=== PATIENT | male | born 1965 | race African-American/Black ===

== ENCOUNTER 2017-04-16 19:03 | Emergency (ER) | payer MEDICARE ==
[2017-04-16] MEDS ORDERED: diphenhydrAMINE HCl 25 MG CAP ONE (20:40)
[2017-04-16] MEDS ORDERED: predniSONE 20 MG TAB ONE (20:40)
== END 2017-04-16 20:58 | disposition home or self-care (01) ==
LOC: ERS 19:03
DX: L50.0 Allergic urticaria (principal); E11.9 Type 2 diabetes mellitus without complications; I10 Essential (primary) hypertension; F17.290 Nicotine dependence, other tobacco product, uncomplicated
CPT/HCPCS: 99283; J7506

== ENCOUNTER 2017-06-18 21:34 | Emergency (ER) | payer MEDICARE ==
[2017-06-18] MEDS ORDERED: hydrOXYzine 25 MG TAB ONE (23:38)
== END 2017-06-18 23:55 | disposition home or self-care (01) ==
LOC: ERS 21:34
DX: L50.9 Urticaria, unspecified (principal); I10 Essential (primary) hypertension; E11.9 Type 2 diabetes mellitus without complications
CPT/HCPCS: 99282

== ENCOUNTER 2017-08-08 04:24 | Emergency (ER) | payer MEDICARE ==
[2017-08-08 08:29] LABS: #Eosinphils 0.2 thou/uL (0.0-0.7); #Lymphocytes 2.4 thou/uL (1.20-3.40); #Monocytes 0.3 thou/uL (0.11-0.59); #Neutrophils 3.9 thou/uL (1.40-6.50); %Basophils 0.1 % (0.0-1.0); %Eosinophils 2.3 % (0.0-10.0); %Lymphocytes 35.5 % (21.0-51.0); %Monocytes 4.9 % (0.0-10.0); %Neutrophils 57.2 % (42.0-75.0); Hemoglobin 14.1 g/dL (14.0-18.0); Mean Corpuscular HGB CONC 33.6 g/dL (32.0-36.0); Mean Corpuscular Hemoglobin 28.4 pg (27.0-31.0); Mean Corpuscular Volume 84.5 fl (80.0-94.0); Platelet Count 255 thou/uL (130-400); RBC Distribution Width 11.9 % (11.5-14.5); Red Blood Cell (RBC) Count 4.98 mill/uL (4.70-6.10); White Blood Cell (WBC) Count 6.7 thou/uL (4.8-10.8)
[2017-08-08 08:50] LABS: ALT (SGPT) 19 U/L (8-55); AST (SGOT) 16 U/L (5-34); Albumin 4.3 g/dL (3.5-5.0); Alkaline Phosphatase 86 U/L (40-150); Anion Gap 10 mmol/L (10-20); BUN (Urea Nitrogen) 13 mg/dL (8.4-25.7); Bilirubin, Total 0.3 mg/dL (0.2-1.2); Calc. Creatinine Clearance 0 mL/min (70-130); Calcium 9.7 mg/dL (7.8-10.44); Carbon Dioxide 31 mmol/L (22-29); Chloride 98 mmol/L (98-107); Estimated GFR-MDRD 84; Globulin 3.6 g/dL (2.4-3.5); Glucose 343 mg/dL (70-105); Potassium 4.4 mmol/L (3.5-5.1); Protein, Total 7.9 g/dL (6.0-8.3); Sodium 135 mmol/L (136-145)
== END 2017-08-08 09:25 | disposition home or self-care (01) ==
LOC: ERS 04:24
DX: N48.1 Balanitis (principal); E10.9 Type 1 diabetes mellitus without complications; I10 Essential (primary) hypertension
CPT/HCPCS: 36415; 36416; 80053; 82010; 85025; 99283

== ENCOUNTER 2018-11-15 14:30 | Emergency (ER) | payer MEDICARE, OTHER ==
[2018-11-15] MEDS ORDERED: Ketorolac Tromethamine 30 MG/ML VIAL ONE (14:56)
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
== END 2018-11-15 15:32 | disposition home or self-care (01) ==
LOC: ERS 14:30
DX: M54.6 Pain in thoracic spine (principal); V43.52XA Car driver injured in collision with other type car in traffic accident, initial encounter
CPT/HCPCS: 72100; 96372; J1885

== ENCOUNTER 2019-08-16 16:28 | Emergency (ER) | payer MEDICARE, OTHER ==
[2019-08-16] MEDS ORDERED: Ketorolac Tromethamine 60 MG/2 ML VIAL ONE (17:54)
== END 2019-08-16 17:05 | disposition home or self-care (01) ==
LOC: ERS 16:28
DX: S39.012A Strain of muscle, fascia and tendon of lower back, initial encounter (principal); E10.9 Type 1 diabetes mellitus without complications; I10 Essential (primary) hypertension; E78.5 Hyperlipidemia, unspecified; V89.2XXA Person injured in unspecified motor-vehicle accident, traffic, initial encounter
CPT/HCPCS: 96372; 99283; J1885

== ENCOUNTER 2019-11-16 23:38 | Emergency (ER) | payer OTHER, MEDICARE ==
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
== END 2019-11-17 01:20 | disposition home or self-care (01) ==
LOC: ERS 23:38
DX: S06.9X9A Unspecified intracranial injury with loss of consciousness of unspecified duration, initial encounter (principal); E11.9 Type 2 diabetes mellitus without complications; I10 Essential (primary) hypertension; E78.5 Hyperlipidemia, unspecified; V49.50XA Passenger injured in collision with unspecified motor vehicles in traffic accident, initial encounter
CPT/HCPCS: 70450; 72125; L0120

== ENCOUNTER 2020-05-18 14:40 | Emergency (ER) | payer MEDICARE, OTHER ==
--- NOTE | 2020-05-18 15:13 | RAD ---
PORTABLE CHEST: 05/18/20 HISTORY: Chest pain. FINDINGS/IMPRESSION: Heart and mediastinum unremarkable. No consolidation, effusion, or confluent infiltrate. Hazy opaciti es in the mid lung gann is nonspecific but could represent COVID infiltrate if patient is COVID pos itive. POS: OFF
[2020-05-18 15:16] LABS: #Lymphocytes 1.6 thou/uL (1.20-3.40); #Monocytes 0.4 thou/uL (0.11-0.59); #Neutrophils 4.8 thou/uL (1.40-6.50); %Eosinophils 0.3 % (0.0-10.0); %Lymphocytes 23.5 % (21.0-51.0); %Neutrophils 70.2 % (42.0-75.0); Hemoglobin 13.8 g/dL (14.0-18.0); Mean Corpuscular HGB CONC 33.5 g/dL (32.0-36.0); Mean Corpuscular Hemoglobin 27.6 pg (27.0-31.0); Mean Corpuscular Volume 82.4 fL (78.0-98.0); Platelet Count 201 thou/uL (130-400); RBC Distribution Width 10.9 % (11.5-14.5); Red Blood Cell (RBC) Count 5.01 mill/uL (4.70-6.10); White Blood Cell (WBC) Count 6.9 thou/uL (4.8-10.8)
[2020-05-18 15:35] LABS: ALT (SGPT) 19 U/L (8-55); AST (SGOT) 27 U/L (5-34); Alkaline Phosphatase 83 U/L (40-110); Anion Gap 16 mmol/L (10-20); BUN (Urea Nitrogen) 9 mg/dL (8.4-25.7); Bilirubin, Total 0.7 mg/dL (0.2-1.2); Calc. Creatinine Clearance 0 mL/min (70-130); Calcium 9.1 mg/dL (7.8-10.44); Carbon Dioxide 27 mmol/L (22-29); Chloride 96 mmol/L (98-107); Estimated GFR-MDRD 83; Globulin 4.5 g/dL (2.4-3.5); Glucose 186 mg/dL (70-105); Potassium 4.3 mmol/L (3.5-5.1); Protein, Total 8.5 g/dL (6.0-8.3); Sodium 135 mmol/L (136-145)
[2020-05-19 03:26] LABS: SARS-CoV-2 MS2 Positive; SARS-CoV-2 N Gene Positive; SARS-CoV-2 S Gene Positive; SARS-CoV-2 by NAA DETECTED (NotDetected); SARS-CoV-2 orf1ab Positive
== END 2020-05-18 17:20 | disposition home or self-care (01) ==
LOC: ERS 14:40
DX: R63.0 Anorexia (principal); I10 Essential (primary) hypertension; E11.9 Type 2 diabetes mellitus without complications; E78.5 Hyperlipidemia, unspecified
CPT/HCPCS: 71045; 80053; 84484; 85025; 93005; 99284; U0003; 36415; 87635

== ENCOUNTER 2020-10-30 08:21 | Emergency (ER) | payer MEDICARE ==
[2020-10-30 11:08] LABS: #Basophils 0.1 thou/uL (0.0-0.2); #Eosinphils 0.2 thou/uL (0.0-0.7); #Lymphocytes 1.9 thou/uL (1.20-3.40); #Monocytes 0.2 thou/uL (0.11-0.59); #Neutrophils 2.5 thou/uL (1.40-6.50); %Basophils 1.5 % (0.0-1.0); %Eosinophils 3.1 % (0.0-10.0); %Lymphocytes 38.8 % (21.0-51.0); %Monocytes 4.5 % (0.0-10.0); %Neutrophils 52.1 % (42.0-75.0); Hemoglobin 13.9 g/dL (14.0-18.0); Mean Corpuscular HGB CONC 33.6 g/dL (32.0-36.0); Mean Corpuscular Hemoglobin 27.9 pg (27.0-31.0); Mean Platelet Volume 7.9 fL (7.4-10.4); Platelet Count 214 thou/uL (130-400); RBC Distribution Width 11.5 % (11.5-14.5); Red Blood Cell (RBC) Count 4.98 mill/uL (4.70-6.10); White Blood Cell (WBC) Count 4.8 thou/uL (4.8-10.8)
[2020-10-30 11:20] LABS: ALT (SGPT) 11 U/L (8-55); AST (SGOT) 14 U/L (5-34); Albumin 3.9 g/dL (3.5-5.0); Alkaline Phosphatase 74 U/L (40-110); Anion Gap 12 mmol/L (10-20); BUN (Urea Nitrogen) 9 mg/dL (8.4-25.7); Bilirubin, Total 0.4 mg/dL (0.2-1.2); Calc. Creatinine Clearance 0 mL/min (70-130); Calcium 9.1 mg/dL (7.8-10.44); Carbon Dioxide 28 mmol/L (22-29); Chloride 104 mmol/L (98-107); Globulin 3.8 g/dL (2.4-3.5); Glucose 232 mg/dL (70-105); Potassium 4.3 mmol/L (3.5-5.1); Protein, Total 7.7 g/dL (6.0-8.3); Sodium 140 mmol/L (136-145)
== END 2020-10-30 12:21 | disposition home or self-care (01) ==
LOC: ERS 08:21
DX: K59.00 Constipation, unspecified (principal); E11.9 Type 2 diabetes mellitus without complications; I10 Essential (primary) hypertension; E78.5 Hyperlipidemia, unspecified; Z79.84 Long term (current) use of oral hypoglycemic drugs
CPT/HCPCS: 36415; 36416; 80053; 85025; 99283

== ENCOUNTER 2021-05-05 20:02 | Inpatient (IN) | payer MEDICARE ==
[2021-05-05 20:46] LABS: #Eosinphils 0.2 thou/uL (0.0-0.7); #Lymphocytes 2.1 thou/uL (1.20-3.40); #Monocytes 0.5 thou/uL (0.11-0.59); #Neutrophils 5.3 thou/uL (1.40-6.50); %Basophils 0.3 % (0.0-1.0); %Eosinophils 2.8 % (0.0-10.0); %Lymphocytes 25.3 % (21.0-51.0); %Monocytes 6.5 % (0.0-10.0); %Neutrophils 65.2 % (42.0-75.0); Hemoglobin 12.5 g/dL (14.0-18.0); Mean Corpuscular HGB CONC 34.9 g/dL (32.0-36.0); Mean Corpuscular Hemoglobin 28.4 pg (27.0-31.0); Mean Corpuscular Volume 81.6 fL (78.0-98.0); Mean Platelet Volume 9.4 fL (7.4-10.4); Platelet Count 327 thou/uL (130-400); RBC Distribution Width 11.5 % (11.5-14.5); Red Blood Cell (RBC) Count 4.39 mill/uL (4.70-6.10); White Blood Cell (WBC) Count 8.1 thou/uL (4.8-10.8)
[2021-05-05 21:44] LABS: Albumin 3.4 g/dL (3.5-5.0)
[2021-05-05 21:45] LABS: Chloride 99 mmol/L (98-107); Potassium 3.6 mmol/L (3.5-5.1); Sodium 134 mmol/L (136-145)
[2021-05-05 21:46] LABS: Calcium 8.4 mg/dL (7.8-10.44); Glucose 256 mg/dL (70-105)
[2021-05-05 21:47] LABS: Globulin 3.5 g/dL (2.4-3.5); Protein, Total 6.9 g/dL (6.0-8.3)
[2021-05-05 21:48] LABS: Anion Gap 13 mmol/L (10-20); Bilirubin, Total 0.6 mg/dL (0.2-1.2); Carbon Dioxide 26 mmol/L (22-29)
[2021-05-05 21:49] LABS: Alkaline Phosphatase 87 U/L (40-110)
[2021-05-05 21:50] LABS: Calc. Creatinine Clearance 0 mL/min (70-130)
[2021-05-05 21:51] LABS: BUN (Urea Nitrogen) 11 mg/dL (8.4-25.7)
[2021-05-05 21:52] LABS: ALT (SGPT) 13 U/L (8-55); AST (SGOT) 15 U/L (5-34)
[2021-05-05] MEDS ORDERED: Ketorolac Tromethamine 30 MG/ML VIAL ONE (22:07)
[2021-05-05] MEDS ORDERED: Vancomycin 1 GM/200 ML BAG ONE (22:08)
[2021-05-05] MEDS ORDERED: Piperacillin/Tazobactam 3.375 GM in Sodium Chloride 0.9% 100 ML IVPB SCH (23:59)
[2021-05-06] MEDS ORDERED: Piperacillin/Tazobactam 3.375 GM in Sodium Chloride 0.9% 100 ML IVPB SCH ×2 (00:15→06:00)
[2021-05-06 01:11] VITALS: BMI 37.9
[2021-05-06] MEDS ORDERED: Ondansetron PF 4 MG/2 ML Vial IVP PRN (01:59)
[2021-05-06] MEDS ORDERED: HYDROcodone/Acetaminophen 5/325 mg Tablet PO PRN (01:59)
[2021-05-06] MEDS ORDERED: Acetaminophen 325 MG TAB PO PRN (01:59)
[2021-05-06] MEDS ORDERED: Dextrose 5% in Water 1,000 ML IV PRN (02:02)
[2021-05-06] MEDS ORDERED: HumaLOG 300 UNITS/3 ML VIAL SC PRN (02:02)
[2021-05-06] MEDS ORDERED: Dextrose 50% Abboject 50 ML SYRINGE SLOW IVP PRN (02:02)
[2021-05-06] MEDS: Sodium Chloride 0.9% 1,000 ML IV SCH ×2 (03:41→15:33)
[2021-05-06] MEDS ORDERED: Vancomycin 1.5 GRAM/300 ML BAG 1.5 GM in Premix Bag 1 BAG IVPB SCH (04:00)
[2021-05-06 06:29] LABS: Hemoglobin A1c 10.5 % (4.0-6.0)
[2021-05-06 06:30] LABS: #Eosinphils 0.2 thou/uL (0.0-0.7); #Lymphocytes 1.5 thou/uL (1.20-3.40); #Monocytes 0.5 thou/uL (0.11-0.59); #Neutrophils 3.8 thou/uL (1.40-6.50); %Basophils 0.3 % (0.0-1.0); %Eosinophils 3.9 % (0.0-10.0); %Lymphocytes 25.3 % (21.0-51.0); %Monocytes 8.3 % (0.0-10.0); %Neutrophils 62.2 % (42.0-75.0); Mean Corpuscular HGB CONC 33.9 g/dL (32.0-36.0); Mean Corpuscular Hemoglobin 27.9 pg (27.0-31.0); Mean Corpuscular Volume 82.3 fL (78.0-98.0); Mean Platelet Volume 7.5 fL (7.4-10.4); Platelet Count 255 thou/uL (130-400); RBC Distribution Width 11.1 % (11.5-14.5); Red Blood Cell (RBC) Count 3.95 mill/uL (4.70-6.10); White Blood Cell (WBC) Count 6.1 thou/uL (4.8-10.8)
[2021-05-06 06:44] LABS: Anion Gap 13 mmol/L (10-20); BUN (Urea Nitrogen) 13 mg/dL (8.4-25.7); Calc. Creatinine Clearance 106 mL/min (70-130); Calcium 8.5 mg/dL (7.8-10.44); Carbon Dioxide 25 mmol/L (22-29); Cardiac Risk 6.1 (Less than 4.5); Chloride 100 mmol/L (98-107); Cholesterol 170 mg/dl (< 200 Desired); Glucose 235 mg/dL (70-105); HDL Cholesterol 28 mg/dL (>60 Neg Risk); LDL Cholesterol, Calculated 119 mg/dL; Potassium 3.9 mmol/L (3.5-5.1); Sodium 134 mmol/L (136-145); Triglycerides 117 mg/dL (Less than 150)
[2021-05-06 07:57] LABS: Amphetamine Not Detected (NotDetected); Barbiturates Screen Not Detected (NotDetected); Benzodiazepine Screen Not Detected (NotDetected); Cocaine Metabolite Screen Not Detected (NotDetected); Methadone Not Detected (NotDetected); Methamphetamine Not Detected (NotDetected); Opiate Screen Not Detected (NotDetected); Oxycodone Screen Not Detected (NotDetected); Phencyclidine (PCP) Not Detected (NotDetected); THC/Cannabinoid Screen Not Detected (NotDetected); Tricyclic Screen Not Detected (NotDetected)
[2021-05-06] MEDS ORDERED: Iopamidol-370 76% 500 ML 1 ML ONE (10:44)
[2021-05-06 12:28] LABS: SARS-CoV-2 PCR by NAA Not Detected (NotDetected)
[2021-05-06] MEDS: cefTRIAXone\\ROCEPHIN 2 GM in Sodium Chloride 0.9% 100 ML IVPB SCH (12:32)
[2021-05-06] MEDS ORDERED: hydrALAZINE 20 MG/ML VIAL SLOW IVP PRN (15:53)
[2021-05-06] MEDS ORDERED: Calcium Carbonate 500 MG ChewTAB PO PRN (15:57)
[2021-05-06] MEDS ORDERED: Lisinopril 5 MG TAB PO SCH (16:00)
[2021-05-06] MEDS ORDERED: NIFEdipine XL 30 MG TAB PO SCH (16:00)
[2021-05-06] MEDS ORDERED: Aspirin 325 mg Enteric Coated Tablet PO SCH (16:00)
[2021-05-06] MEDS: metroNIDAZOLE 500 MG TAB PO SCH ×2 (16:28→21:42)
[2021-05-06] MEDS: glipiZIDE 5 MG TAB PO SCH (16:28)
[2021-05-06] MEDS: Enoxaparin Sodium 40 MG/0.4 ML SYRINGE SC SCH (21:42)
[2021-05-06] MEDS: Senokot S 8.6-50 MG TAB PO SCH (21:42)
[2021-05-06] MEDS: Atorvastatin Calcium 40 MG TAB PO SCH (21:43)
[2021-05-07 06:55] LABS: #Eosinphils 0.2 thou/uL (0.0-0.7); #Lymphocytes 1.5 thou/uL (1.20-3.40); #Monocytes 0.4 thou/uL (0.11-0.59); #Neutrophils 3.8 thou/uL (1.40-6.50); %Basophils 0.2 % (0.0-1.0); %Eosinophils 2.9 % (0.0-10.0); %Lymphocytes 25.6 % (21.0-51.0); %Monocytes 6.9 % (0.0-10.0); %Neutrophils 64.5 % (42.0-75.0); Hemoglobin 11.1 g/dL (14.0-18.0); Mean Corpuscular HGB CONC 33.9 g/dL (32.0-36.0); Mean Corpuscular Volume 82.4 fL (78.0-98.0); Mean Platelet Volume 7.2 fL (7.4-10.4); Platelet Count 270 thou/uL (130-400); Red Blood Cell (RBC) Count 3.99 mill/uL (4.70-6.10); White Blood Cell (WBC) Count 5.8 thou/uL (4.8-10.8)
[2021-05-07 07:16] LABS: Anion Gap 11 mmol/L (10-20); BUN (Urea Nitrogen) 10 mg/dL (8.4-25.7); Calc. Creatinine Clearance 130 mL/min (70-130); Calcium 8.9 mg/dL (7.8-10.44); Carbon Dioxide 27 mmol/L (22-29); Chloride 103 mmol/L (98-107); Glucose 120 mg/dL (70-105); Potassium 3.8 mmol/L (3.5-5.1); Sodium 137 mmol/L (136-145)
[2021-05-07] MEDS: Saccharomyces boulardii 250 MG CAP PO SCH (08:03)
[2021-05-07] MEDS: glipiZIDE 5 MG TAB PO SCH ×2 (08:03→16:18)
[2021-05-07] MEDS: Lisinopril 5 MG TAB PO SCH (08:04)
[2021-05-07] MEDS: Senokot S 8.6-50 MG TAB PO SCH ×2 (08:04→21:41)
[2021-05-07] MEDS: metroNIDAZOLE 500 MG TAB PO SCH ×3 (08:04→21:41)
[2021-05-07] MEDS ORDERED: NIFEdipine XL 30 MG TAB PO SCH (09:00)
[2021-05-07] MEDS ORDERED: Aspirin 325 mg Enteric Coated Tablet PO SCH (09:00)
[2021-05-07] MEDS ORDERED: Promethazine HCl 25 MG/ML VIAL IM PRN (11:55)
[2021-05-07] MEDS ORDERED: Ondansetron HCl/PF 4 MG/2 ML Vial IVP PRN (11:55)
[2021-05-07] MEDS ORDERED: Promethazine HCl 25 MG/ML VIAL IVPB PRN (11:55)
[2021-05-07] MEDS: cefTRIAXone\\ROCEPHIN 2 GM in Sodium Chloride 0.9% 100 ML IVPB SCH (12:55)
[2021-05-07] MEDS ORDERED: Lidocaine 1% w/Epinephrine 1:100K 20 ML VIAL ONE (13:04)
[2021-05-07] MEDS ORDERED: Bupivacaine 0.25% HCL 30 ML VIAL ONE (13:04)
[2021-05-07] MEDS ORDERED: Fentanyl 100 MCG/2 ML VIAL ONE (13:13)
[2021-05-07] MEDS ORDERED: Ondansetron PF 4 MG/2 ML Vial ONE (13:21)
[2021-05-07] MEDS ORDERED: Lidocaine 1% PF 5 ML VIAL ONE (13:21)
[2021-05-07] MEDS ORDERED: PROPOFOL 200 MG/20 ML VIAL ONE (13:21)
[2021-05-07] MEDS ORDERED: Dextrose 50% Abboject 50 ML SYRINGE ONE (14:32)
[2021-05-07] MEDS ORDERED: Vancomycin 1 GM in Premix Bag 1 BAG IVPB SCH (15:15)
[2021-05-07] MEDS ORDERED: VANCOMYCIN 2 GRAM/400 ML BAG 2 GM in Premix Bag 1 BAG IVPB SCH (16:15)
[2021-05-07] MEDS: Sodium Chloride 0.9% 1,000 ML IV SCH (16:18)
[2021-05-07] MEDS: Enoxaparin Sodium 40 MG/0.4 ML SYRINGE SC SCH (21:38)
[2021-05-07] MEDS: Atorvastatin Calcium 40 MG TAB PO SCH (21:38)
[2021-05-07] MEDS: NIFEdipine XL 30 MG TAB PO SCH (21:41)
[2021-05-08] MEDS: Sodium Chloride 0.9% 1,000 ML IV SCH (04:30)
[2021-05-08] MEDS: VANCOMYCIN 1.25 GM/250 ML BAG 1.25 GM in Premix Bag 1 BAG IVPB SCH ×2 (04:30→15:55)
[2021-05-08 07:07] LABS: #Eosinphils 0.2 thou/uL (0.0-0.7); #Lymphocytes 1.3 thou/uL (1.20-3.40); #Monocytes 0.4 thou/uL (0.11-0.59); #Neutrophils 4.2 thou/uL (1.40-6.50); %Eosinophils 2.7 % (0.0-10.0); %Lymphocytes 22.3 % (21.0-51.0); %Monocytes 5.8 % (0.0-10.0); %Neutrophils 69.2 % (42.0-75.0); Hemoglobin 10.9 g/dL (14.0-18.0); Mean Corpuscular HGB CONC 33.2 g/dL (32.0-36.0); Mean Corpuscular Hemoglobin 27.6 pg (27.0-31.0); Mean Corpuscular Volume 83.1 fL (78.0-98.0); Mean Platelet Volume 7.1 fL (7.4-10.4); Platelet Count 297 thou/uL (130-400); Red Blood Cell (RBC) Count 3.97 mill/uL (4.70-6.10)
[2021-05-08 07:25] LABS: Anion Gap 13 mmol/L (10-20); BUN (Urea Nitrogen) 8 mg/dL (8.4-25.7); Calc. Creatinine Clearance 135 mL/min (70-130); Calcium 8.6 mg/dL (7.8-10.44); Carbon Dioxide 23 mmol/L (22-29); Chloride 103 mmol/L (98-107); Glucose 100 mg/dL (70-105); Sodium 135 mmol/L (136-145)
[2021-05-08] MEDS: NIFEdipine XL 30 MG TAB PO SCH ×2 (08:14→20:49)
[2021-05-08] MEDS: Senokot S 8.6-50 MG TAB PO SCH ×2 (08:14→20:51)
[2021-05-08] MEDS: Lisinopril 5 MG TAB PO SCH (08:15)
[2021-05-08] MEDS: metroNIDAZOLE 500 MG TAB PO SCH ×3 (08:15→20:51)
[2021-05-08] MEDS: Saccharomyces boulardii 250 MG CAP PO SCH (08:15)
[2021-05-08] MEDS: Aspirin 81 mg Enteric Coated Tablet PO SCH (08:15)
[2021-05-08] MEDS: glipiZIDE 5 MG TAB PO SCH (08:15)
[2021-05-08] MEDS ORDERED: Iopamidol 370 76% 50 ML VIAL FS ONE (09:56)
[2021-05-08] MEDS ORDERED: Lidocaine 1% (PF) 30 ML VIAL ONE ×3 (10:44→11:25)
[2021-05-08] MEDS ORDERED: Heparin 10,000 UNITS/ 10 ML VIAL ONE (12:15)
[2021-05-08] MEDS ORDERED: hydrALAZINE 20 MG/ML VIAL ONE (12:18)
[2021-05-08] MEDS: cefTRIAXone\\ROCEPHIN 2 GM in Sodium Chloride 0.9% 100 ML IVPB SCH (12:25)
[2021-05-08] MEDS: Enoxaparin Sodium 40 MG/0.4 ML SYRINGE SC SCH (20:51)
[2021-05-08] MEDS: Atorvastatin Calcium 40 MG TAB PO SCH (20:51)
[2021-05-09 04:23] LABS: Vancomycin, Trough 11.2 ug/mL
[2021-05-09] MEDS ORDERED: VANCOMYCIN 1.75 GM/350 ML BAG 1.75 GM in Premix Bag 1 BAG IVPB SCH (05:00)
[2021-05-09] MEDS: VANCOMYCIN 1.25 GM/250 ML BAG 1.25 GM in Premix Bag 1 BAG IVPB SCH (05:05)
[2021-05-09] MEDS ORDERED: glipiZIDE 5 MG TAB PO SCH (07:30)
[2021-05-09] MEDS: Aspirin 81 mg Enteric Coated Tablet PO SCH (08:27)
[2021-05-09] MEDS: Saccharomyces boulardii 250 MG CAP PO SCH (08:27)
[2021-05-09] MEDS: Lisinopril 5 MG TAB PO SCH (08:27)
[2021-05-09] MEDS: Senokot S 8.6-50 MG TAB PO SCH (08:28)
[2021-05-09] MEDS: metroNIDAZOLE 500 MG TAB PO SCH (08:29)
[2021-05-09] MEDS: NIFEdipine XL 30 MG TAB PO SCH (09:44)
[2021-05-09] MEDS: cefTRIAXone\\ROCEPHIN 2 GM in Sodium Chloride 0.9% 100 ML IVPB SCH (10:51)
[2021-05-09 15:38] VITALS: BP 143/75; TEMP 98.1
== END 2021-05-09 16:06 | DRG 854 ==
LOC: ERS 20:02 → T4-A 22:30
PROVIDERS: ADMIT Student in an Organized Health Care Education/Training Program; ATTEND Internal Medicine
PROC: 0Y6Q0Z0 Detachment at Left 1st Toe, Complete, Open Approach (ICD-10-PCS; 2021-05-07)
PROC: B41DZZZ Fluoroscopy of Aorta and Bilateral Lower Extremity Arteries (ICD-10-PCS; principal; 2021-05-08)
DX: A41.9 Sepsis, unspecified organism (principal); M86.172 Other acute osteomyelitis, left ankle and foot; E11.52 Type 2 diabetes mellitus with diabetic peripheral angiopathy with gangrene; I96 Gangrene, not elsewhere classified; Z20.822 Contact with and (suspected) exposure to COVID-19; E78.5 Hyperlipidemia, unspecified; Z91.14 Patient's other noncompliance with medication regimen; L03.032 Cellulitis of left toe; E11.69 Type 2 diabetes mellitus with other specified complication; E66.9 Obesity, unspecified; E78.00 Pure hypercholesterolemia, unspecified; E11.65 Type 2 diabetes mellitus with hyperglycemia; E11.22 Type 2 diabetes mellitus with diabetic chronic kidney disease; D63.1 Anemia in chronic kidney disease; I12.9 Hypertensive chronic kidney disease with stage 1 through stage 4 chronic kidney disease, or unspecified chronic kidney disease; N18.2 Chronic kidney disease, stage 2 (mild); E11.628 Type 2 diabetes mellitus with other skin complications; I77.1 Stricture of artery; E11.621 Type 2 diabetes mellitus with foot ulcer; L97.529 Non-pressure chronic ulcer of other part of left foot with unspecified severity; Z68.37 Body mass index [BMI] 37.0-37.9, adult; Z90.49 Acquired absence of other specified parts of digestive tract
CPT/HCPCS: 36246; 36415; 36416; 75635; 80048; 80053; 80061; 80202; 80306; 83036; 83605; 85025; 85652; 86140; 87040; 87070; 87076; 87077; 87149; 87186; 87205; 88305; 88311; 93923; J0360; J0696; J1644; J1650; J1815; J1885; J2001; J2405; J2543; J2704; J3010; J3370; J3490; J7050; Q9967; S0020; U0003; U0005

== ENCOUNTER 2021-07-10 12:09 | Outpatient (CLI) | payer MEDICARE ==
[2021-07-10 13:49] LABS: #Eosinphils 0.1 10x3/uL (0.0-0.5); #Monocytes 0.5 10x3/uL (0.0-1.1); #Neutrophils 8.8 10x3/uL (1.5-8.4); %Basophils 0.2 % (0.0-2.0); %Eosinophils 1.2 % (0.0-6.0); %Lymphocytes 17.4 % (18.0-47.0); %Monocytes 4.7 % (0.0-10.0); Hemoglobin 10.2 g/dL (13.5-17.5); Mean Corpuscular HGB CONC 31.2 g/dL (32.0-36.0); Mean Corpuscular Hemoglobin 26.1 pg (27.0-33.0); Mean Corpuscular Volume 83.6 fl (81.2-95.1); Mean Platelet Volume 9.4 fl (7.4-10.4); Platelet Count 543 10x3/uL (150-450); RBC Distribution Width 12.1 % (11.5-14.5); Red Blood Cell (RBC) Count 3.91 10x6/uL (4.32-5.72); White Blood Cell (WBC) Count 11.5 10x3/uL (3.5-10.5)
[2021-07-10 14:15] LABS: Anion Gap 18 mmol/L (10-20); BUN (Urea Nitrogen) 13 mg/dL (8.4-25.7); Calc. Creatinine Clearance 0 mL/min (70-130); Carbon Dioxide 28 mmol/L (22-29); Chloride 97 mmol/L (98-107); Glucose 247 mg/dL (70-105); Potassium 5.1 mmol/L (3.5-5.1); Sodium 138 mmol/L (136-145)
[2021-07-10 21:24] LABS: SARS-CoV-2 PCR by NAA DETECTED (NotDetected)
== END 2021-07-10 12:10 | disposition home or self-care (01) ==
LOC: LABBT 12:09
PROVIDERS: ATTEND Specialist
DX: U07.1 COVID-19 (principal); Z01.818 Encounter for other preprocedural examination; I96 Gangrene, not elsewhere classified
CPT/HCPCS: 80048; 85025; 93005; U0003; U0005; 93010

== ENCOUNTER 2021-07-10 13:30 | Inpatient (IN) | payer MEDICARE ==
[2021-07-11] MEDS ORDERED: Ketorolac Tromethamine 30 MG/ML VIAL ONE (11:35)
[2021-07-11] MEDS ORDERED: Acetaminophen 500 MG TAB ONE (11:35)
[2021-07-11] MEDS ORDERED: Fentanyl 100 MCG/2 ML VIAL ONE (14:49)
[2021-07-11] MEDS ORDERED: EPINEPHrine 1 MG/ML AMP ONE (15:02)
[2021-07-11] MEDS ORDERED: Bupivacaine 0.25% HCL 30 ML VIAL ONE (15:02)
[2021-07-11] MEDS ORDERED: ceFAZolin 2 GM/Dextrose 50 ML IVPB ONE (15:07)
[2021-07-11] MEDS ORDERED: Lidocaine 1% PF 5 ML VIAL ONE (15:12)
[2021-07-11] MEDS ORDERED: Ondansetron PF 4 MG/2 ML Vial ONE (15:12)
[2021-07-11] MEDS ORDERED: Dexamethasone 20 MG/5 ML VIAL ONE (15:12)
[2021-07-11] MEDS ORDERED: PHENYLEPHRINE-NS 100 MCG/ML 10 ML SYRINGE ONE (15:12)
[2021-07-11] MEDS ORDERED: PROPOFOL 200 MG/20 ML VIAL ONE (15:12)
[2021-07-11] MEDS ORDERED: Glycopyrrolate 0.2 MG/ML 5 ML SYRINGE ONE (15:12)
[2021-07-11] MEDS ORDERED: Morphine 4 MG/ML VIAL SLOW IVP PRN (20:11)
[2021-07-11] MEDS ORDERED: Dextrose 50% Abboject 50 ML SYRINGE SLOW IVP PRN (20:11)
[2021-07-11] MEDS ORDERED: Ondansetron ODT 4 MG TAB PO PRN (20:11)
[2021-07-11] MEDS ORDERED: Dextrose 5% in Water 1,000 ML IV PRN (20:11)
[2021-07-11] MEDS: hydrALAZINE 20 MG/ML VIAL SLOW IVP PRN (20:54)
[2021-07-11] MEDS: Insulin Regular 300 UNITS/3 ML VIAL SC PRN (20:54)
[2021-07-11] MEDS: Sodium Chloride 0.9% 1,000 ML IV SCH (20:57)
[2021-07-11] MEDS: HYDROcodone/Acetaminophen 10/325 mg Tablet PO PRN (21:35)
[2021-07-11 22:01] VITALS: BMI 37.1
[2021-07-12] MEDS: hydrALAZINE 20 MG/ML VIAL SLOW IVP PRN (01:18)
[2021-07-12] MEDS: Insulin Regular 300 UNITS/3 ML VIAL SC PRN ×3 (05:54→17:18)
[2021-07-12 06:57] LABS: #Lymphocytes 1.5 thou/uL (1.20-3.40); #Monocytes 0.4 thou/uL (0.11-0.59); #Neutrophils 8.8 thou/uL (1.40-6.50); %Basophils 0.2 % (0.0-1.0); %Eosinophils 0.3 % (0.0-10.0); %Lymphocytes 13.6 % (21.0-51.0); %Monocytes 3.5 % (0.0-10.0); %Neutrophils 82.4 % (42.0-75.0); Hemoglobin 10.3 g/dL (14.0-18.0); Mean Corpuscular HGB CONC 32.5 g/dL (32.0-36.0); Mean Corpuscular Hemoglobin 27.4 pg (27.0-31.0); Mean Corpuscular Volume 84.3 fL (78.0-98.0); Mean Platelet Volume 6.7 fL (7.4-10.4); Platelet Count 468 thou/uL (130-400); RBC Distribution Width 11.9 % (11.5-14.5); Red Blood Cell (RBC) Count 3.75 mill/uL (4.70-6.10); White Blood Cell (WBC) Count 10.6 thou/uL (4.8-10.8)
[2021-07-12 07:10] LABS: Anion Gap 15 mmol/L (10-20); BUN (Urea Nitrogen) 20 mg/dL (8.4-25.7); Calc. Creatinine Clearance 108 mL/min (70-130); Carbon Dioxide 25 mmol/L (22-29); Chloride 99 mmol/L (98-107); Glucose 244 mg/dL (70-105); Potassium 4.9 mmol/L (3.5-5.1); Sodium 134 mmol/L (136-145)
[2021-07-12] MEDS: metFORMIN 500 MG TAB PO SCH ×2 (08:19→17:17)
[2021-07-12] MEDS: Atorvastatin Calcium 20 MG TAB PO SCH (08:19)
[2021-07-12] MEDS: Ezetimibe 10 MG TAB PO SCH (08:19)
[2021-07-12] MEDS: Aspirin Chewable 81 MG TAB PO SCH (08:20)
[2021-07-12] MEDS: Sodium Chloride 0.9% 1,000 ML IV SCH (09:00)
[2021-07-12] MEDS: Morphine 4 MG/ML VIAL SLOW IVP PRN (10:59)
[2021-07-13] MEDS: Sodium Chloride 0.9% 1,000 ML IV SCH ×2 (01:45→15:00)
[2021-07-13 07:41] LABS: #Eosinphils 0.2 thou/uL (0.0-0.7); #Lymphocytes 1.8 thou/uL (1.20-3.40); #Monocytes 0.5 thou/uL (0.11-0.59); %Basophils 0.5 % (0.0-1.0); %Eosinophils 2.2 % (0.0-10.0); %Lymphocytes 20.7 % (21.0-51.0); %Neutrophils 70.5 % (42.0-75.0); Hemoglobin 9.6 g/dL (14.0-18.0); Mean Corpuscular HGB CONC 33.1 g/dL (32.0-36.0); Mean Corpuscular Hemoglobin 27.9 pg (27.0-31.0); Mean Corpuscular Volume 84.2 fL (78.0-98.0); Mean Platelet Volume 6.6 fL (7.4-10.4); Platelet Count 456 thou/uL (130-400); RBC Distribution Width 11.8 % (11.5-14.5); Red Blood Cell (RBC) Count 3.45 mill/uL (4.70-6.10); White Blood Cell (WBC) Count 8.4 thou/uL (4.8-10.8)
[2021-07-13 08:05] LABS: Anion Gap 14 mmol/L (10-20); BUN (Urea Nitrogen) 21 mg/dL (8.4-25.7); Calc. Creatinine Clearance 111 mL/min (70-130); Calcium 8.4 mg/dL (7.8-10.44); Carbon Dioxide 22 mmol/L (22-29); Chloride 102 mmol/L (98-107); Glucose 151 mg/dL (70-105); Potassium 4.3 mmol/L (3.5-5.1); Sodium 134 mmol/L (136-145)
[2021-07-13] MEDS: Aspirin Chewable 81 MG TAB PO SCH (08:10)
[2021-07-13] MEDS: Ezetimibe 10 MG TAB PO SCH (08:10)
[2021-07-13] MEDS: Atorvastatin Calcium 20 MG TAB PO SCH (08:10)
[2021-07-13] MEDS: metFORMIN 500 MG TAB PO SCH ×2 (08:10→16:36)
[2021-07-14] MEDS: hydrALAZINE 20 MG/ML VIAL SLOW IVP PRN ×2 (05:52→10:29)
[2021-07-14] MEDS: Sodium Chloride 0.9% 1,000 ML IV SCH ×2 (05:52→22:51)
[2021-07-14] MEDS: Aspirin Chewable 81 MG TAB PO SCH (08:01)
[2021-07-14] MEDS: Ezetimibe 10 MG TAB PO SCH (08:01)
[2021-07-14] MEDS: Atorvastatin Calcium 20 MG TAB PO SCH (08:01)
[2021-07-14] MEDS: metFORMIN 500 MG TAB PO SCH ×2 (08:01→17:21)
[2021-07-14] MEDS: HYDROcodone/Acetaminophen 10/325 mg Tablet PO PRN (10:24)
[2021-07-14] MEDS: Morphine 4 MG/ML VIAL SLOW IVP PRN (11:29)
[2021-07-14] MEDS ORDERED: Losartan 25 MG TAB PO SCH (11:30)
[2021-07-14] MEDS ORDERED: Ondansetron PF 4 MG/2 ML Vial IVP PRN (11:32)
[2021-07-14] MEDS ORDERED: Benzonatate 100 MG CAP PO PRN (11:36)
[2021-07-14] MEDS ORDERED: Ibuprofen 200 MG TAB PO PRN (11:36)
[2021-07-14] MEDS ORDERED: Labetalol HCl 100 MG/20 ML VIAL SLOW IVP PRN (11:36)
[2021-07-14] MEDS ORDERED: Acetaminophen 325 MG TAB PO PRN (11:37)
[2021-07-14] MEDS ORDERED: Acetaminophen 325 MG Suppository PR PRN (11:37)
[2021-07-15 07:59] LABS: Hemoglobin 9.2 g/dL (14.0-18.0); Mean Corpuscular HGB CONC 31.2 g/dL (32.0-36.0); Mean Corpuscular Hemoglobin 26.2 pg (27.0-31.0); Mean Platelet Volume 6.5 fL (7.4-10.4); Platelet Count 486 thou/uL (130-400); RBC Distribution Width 11.9 % (11.5-14.5); Red Blood Cell (RBC) Count 3.51 mill/uL (4.70-6.10); White Blood Cell (WBC) Count 7.2 thou/uL (4.8-10.8)
[2021-07-15 08:00] LABS: #Eosinphils 0.2 thou/uL (0.0-0.7); #Lymphocytes 1.8 thou/uL (1.20-3.40); #Monocytes 0.3 thou/uL (0.11-0.59); #Neutrophils 4.9 thou/uL (1.40-6.50); %Basophils 0.2 % (0.0-1.0); %Eosinophils 2.4 % (0.0-10.0); %Lymphocytes 24.5 % (21.0-51.0); %Monocytes 4.3 % (0.0-10.0); %Neutrophils 68.6 % (42.0-75.0)
[2021-07-15 08:11] LABS: Anion Gap 13 mmol/L (10-20); BUN (Urea Nitrogen) 13 mg/dL (8.4-25.7); Calc. Creatinine Clearance 121 mL/min (70-130); Calcium 8.9 mg/dL (7.8-10.44); Carbon Dioxide 23 mmol/L (22-29); Chloride 105 mmol/L (98-107); Glucose 139 mg/dL (70-105); Potassium 4.2 mmol/L (3.5-5.1); Sodium 137 mmol/L (136-145)
[2021-07-15] MEDS: metFORMIN 500 MG TAB PO SCH ×2 (08:41→17:09)
[2021-07-15] MEDS: Ezetimibe 10 MG TAB PO SCH (08:42)
[2021-07-15] MEDS: Atorvastatin Calcium 20 MG TAB PO SCH (08:42)
[2021-07-15] MEDS: Aspirin Chewable 81 MG TAB PO SCH (08:42)
[2021-07-15] MEDS ORDERED: Losartan 25 MG TAB PO SCH (09:00)
[2021-07-15] MEDS ORDERED: Hydrochlorothiazide 25 MG TAB PO SCH ×2 (09:44→10:00)
[2021-07-15] MEDS: Sodium Chloride 0.9% 1,000 ML IV SCH (12:25)
[2021-07-15] MEDS: Losartan 25 MG TAB PO SCH (20:43)
[2021-07-16] MEDS: Ezetimibe 10 MG TAB PO SCH (08:10)
[2021-07-16] MEDS: Aspirin Chewable 81 MG TAB PO SCH (08:10)
[2021-07-16] MEDS: Losartan 25 MG TAB PO SCH (08:10)
[2021-07-16] MEDS: Atorvastatin Calcium 20 MG TAB PO SCH (08:10)
[2021-07-16] MEDS: metFORMIN 500 MG TAB PO SCH ×2 (08:10→17:15)
[2021-07-16] MEDS: Hydrochlorothiazide 25 MG TAB PO SCH (08:10)
[2021-07-16] MEDS ORDERED: Losartan 25 MG TAB PO SCH ×2 (20:00→21:00)
[2021-07-17 08:22] LABS: Anion Gap 13 mmol/L (10-20); BUN (Urea Nitrogen) 14 mg/dL (8.4-25.7); Calc. Creatinine Clearance 115 mL/min (70-130); Calcium 9.6 mg/dL (7.8-10.44); Carbon Dioxide 26 mmol/L (22-29); Chloride 101 mmol/L (98-107); Glucose 128 mg/dL (70-105); Potassium 4.2 mmol/L (3.5-5.1); Sodium 136 mmol/L (136-145)
[2021-07-17] MEDS: Ezetimibe 10 MG TAB PO SCH (08:46)
[2021-07-17] MEDS: metFORMIN 500 MG TAB PO SCH ×2 (08:46→17:01)
[2021-07-17] MEDS: Aspirin Chewable 81 MG TAB PO SCH (08:46)
[2021-07-17] MEDS: Atorvastatin Calcium 20 MG TAB PO SCH (08:47)
[2021-07-17] MEDS: Hydrochlorothiazide 25 MG TAB PO SCH (08:48)
[2021-07-17 08:52] VITALS: TEMP 98.5
[2021-07-17] MEDS ORDERED: Losartan 25 MG TAB PO SCH ×2 (09:00)
[2021-07-17 16:45] VITALS: BP 115/70
[2021-07-17] MEDS ORDERED: Losartan 25 MG TAB PO ONE (20:00)
== END 2021-07-17 18:17 | DRG 239 ==
LOC: SURG A 07-11 11:14 → EDSTATUS 07-11 13:30 → T4-A 07-11 19:53
PROVIDERS: ADMIT Specialist; ATTEND Specialist
PROC: 0Y6N0Z9 Detachment at Left Foot, Partial 1st Ray, Open Approach (ICD-10-PCS; principal; 2021-07-11)
DX: E11.52 Type 2 diabetes mellitus with diabetic peripheral angiopathy with gangrene (principal); U07.1 COVID-19; M86.8X7 Other osteomyelitis, ankle and foot; E78.5 Hyperlipidemia, unspecified; I10 Essential (primary) hypertension; D63.8 Anemia in other chronic diseases classified elsewhere; E11.69 Type 2 diabetes mellitus with other specified complication; R51.9 Headache, unspecified; Z90.49 Acquired absence of other specified parts of digestive tract; Z83.3 Family history of diabetes mellitus; Z82.49 Family history of ischemic heart disease and other diseases of the circulatory system; Z79.899 Other long term (current) drug therapy; Z79.84 Long term (current) use of oral hypoglycemic drugs; Z91.14 Patient's other noncompliance with medication regimen; Z83.49 Family history of other endocrine, nutritional and metabolic diseases
CPT/HCPCS: 36415; 36416; 80048; 85025; 88305; 88311; J0171; J0360; J0690; J1100; J1815; J1885; J2270; J2405; J2704; J3010; J7050; Q0162; S0020

== ENCOUNTER 2021-08-08 08:27 | Outpatient (CLI) | payer MEDICARE ==
[2021-08-08 09:40] LABS: #Eosinphils 0.2 10x3/uL (0.0-0.5); #Monocytes 0.7 10x3/uL (0.0-1.1); #Neutrophils 7.3 10x3/uL (1.5-8.4); %Basophils 0.3 % (0.0-2.0); %Eosinophils 2.4 % (0.0-6.0); %Lymphocytes 13.5 % (18.0-47.0); %Monocytes 7.1 % (0.0-10.0); Mean Corpuscular HGB CONC 30.5 g/dL (32.0-36.0); Mean Corpuscular Hemoglobin 25.4 pg (27.0-33.0); Mean Corpuscular Volume 83.1 fl (81.2-95.1); Mean Platelet Volume 8.9 fl (7.4-10.4); Platelet Count 389 10x3/uL (150-450); Red Blood Cell (RBC) Count 3.55 10x6/uL (4.32-5.72); White Blood Cell (WBC) Count 9.6 10x3/uL (3.5-10.5)
[2021-08-08 09:54] LABS: Anion Gap 20 mmol/L (10-20); BUN (Urea Nitrogen) 31 mg/dL (8.4-25.7); Calc. Creatinine Clearance 0 mL/min (70-130); Calcium 9.9 mg/dL (7.8-10.44); Carbon Dioxide 22 mmol/L (22-29); Chloride 97 mmol/L (98-107); Glucose 143 mg/dL (70-105); Potassium 5.6 mmol/L (3.5-5.1); Sodium 133 mmol/L (136-145)
[2021-08-08 16:49] LABS: SARS-CoV-2 PCR by NAA Not Detected (NotDetected)
== END 2021-08-08 08:28 | disposition home or self-care (01) ==
LOC: LABBT 08:27
PROVIDERS: ATTEND Specialist
DX: Z01.812 Encounter for preprocedural laboratory examination (principal); Z20.822 Contact with and (suspected) exposure to COVID-19
CPT/HCPCS: 80048; 85025; U0003; U0005

== ENCOUNTER 2021-08-09 11:47 | Inpatient (IN) | payer MEDICARE ==
[2021-08-09] MEDS ORDERED: Ketorolac Tromethamine 30 MG/ML VIAL ONE (12:32)
[2021-08-09] MEDS ORDERED: Acetaminophen 500 MG TAB ONE (12:32)
[2021-08-09] MEDS ORDERED: Bupivacaine 0.25% HCL 30 ML VIAL ONE (13:27)
[2021-08-09] MEDS ORDERED: Xylocaine 1% w/ Epi 1:100K 10 ML VIAL ONE (13:27)
[2021-08-09 13:56] LABS: Anion Gap 12 mmol/L (10-20); BUN (Urea Nitrogen) 25 mg/dL (8.4-25.7); Calc. Creatinine Clearance 78 mL/min (70-130); Calcium 9.8 mg/dL (7.8-10.44); Carbon Dioxide 24 mmol/L (22-29); Chloride 103 mmol/L (98-107); Glucose 161 mg/dL (70-105); Potassium 5.9 mmol/L (3.5-5.1); Sodium 133 mmol/L (136-145)
[2021-08-09] MEDS ORDERED: Fentanyl 250 MCG/5 ML VIAL ONE (14:30)
[2021-08-09] MEDS ORDERED: Piperacillin/Tazobactam 3.375 GM in Sodium Chloride 0.9% 100 ML IVPB SCH ×2 (15:45→18:00)
[2021-08-09] MEDS ORDERED: Piperacillin/Tazobactam 3.375 GM VIAL ONE (15:58)
[2021-08-09] MEDS ORDERED: Sodium Chloride 0.9% 100 ML ONE (15:59)
[2021-08-09] MEDS ORDERED: Dextrose 50% Abboject 50 ML SYRINGE SLOW IVP PRN (20:19)
[2021-08-09] MEDS ORDERED: Dextrose 5% in Water 1,000 ML IV PRN (20:19)
[2021-08-09] MEDS ORDERED: Insulin Regular 300 UNITS/3 ML VIAL SC PRN ×2 (20:19)
[2021-08-09] MEDS ORDERED: Calcium Carbonate 500 MG ChewTAB PO PRN (20:20)
[2021-08-09] MEDS ORDERED: Ondansetron ODT 4 MG TAB PO PRN (20:20)
[2021-08-09] MEDS ORDERED: Senokot S 8.6-50 MG TAB PO PRN (20:20)
[2021-08-09] MEDS ORDERED: Bisacodyl 10 MG SUPP PR PRN (20:20)
[2021-08-09] MEDS ORDERED: Acetaminophen 325 MG TAB PO PRN (20:20)
[2021-08-09] MEDS ORDERED: Ondansetron PF 4 MG/2 ML Vial IVP PRN (20:20)
[2021-08-09] MEDS ORDERED: Vancomycin 1 GM in Premix Bag 1 BAG IVPB SCH (20:30)
[2021-08-09] MEDS ORDERED: Polyethylene Glycol 3350 17 GM Packet PO SCH (21:00)
[2021-08-09] MEDS ORDERED: VANCOMYCIN 2 GRAM/400 ML BAG 2 GM in Premix Bag 1 BAG IVPB SCH (21:00)
[2021-08-09] MEDS: Piperacillin/Tazobactam 3.375 GM in Sodium Chloride 0.9% 100 ML IVPB SCH (21:03)
[2021-08-09] MEDS: Sodium Chloride 0.9% 1,000 ML IV SCH (21:05)
[2021-08-09] MEDS: Atorvastatin Calcium 20 MG TAB PO SCH (21:08)
[2021-08-09] MEDS: Famotidine 20 MG TAB PO SCH (21:08)
[2021-08-10] MEDS: Sodium Chloride 0.9% 1,000 ML IV SCH ×4 (00:51→18:18)
[2021-08-10] MEDS ORDERED: VANCOMYCIN 2 GRAM/400 ML BAG 2 GM in Premix Bag 1 BAG IVPB SCH (01:00)
[2021-08-10 04:47] LABS: Anion Gap 13 mmol/L (10-20); BUN (Urea Nitrogen) 24 mg/dL (8.4-25.7); Calc. Creatinine Clearance 76 mL/min (70-130); Calcium 9.2 mg/dL (7.8-10.44); Carbon Dioxide 23 mmol/L (22-29); Chloride 108 mmol/L (98-107); Glucose 110 mg/dL (70-105); Potassium 5.8 mmol/L (3.5-5.1); Sodium 138 mmol/L (136-145)
[2021-08-10] MEDS: Piperacillin/Tazobactam 3.375 GM in Sodium Chloride 0.9% 100 ML IVPB SCH (04:57)
[2021-08-10 05:09] LABS: #Basophils 0.1 thou/uL (0.0-0.2); #Eosinphils 0.2 thou/uL (0.0-0.7); #Lymphocytes 1.8 thou/uL (1.20-3.40); #Monocytes 0.6 thou/uL (0.11-0.59); #Neutrophils 4.3 thou/uL (1.40-6.50); %Basophils 1.1 % (0.0-1.0); %Eosinophils 3.4 % (0.0-10.0); %Lymphocytes 25.1 % (21.0-51.0); %Monocytes 8.7 % (0.0-10.0); %Neutrophils 61.7 % (42.0-75.0); Mean Corpuscular HGB CONC 31.4 g/dL (32.0-36.0); Mean Corpuscular Hemoglobin 27.3 pg (27.0-31.0); Mean Corpuscular Volume 87.1 fL (78.0-98.0); Mean Platelet Volume 6.3 fL (7.4-10.4); Platelet Count 359 thou/uL (130-400); RBC Distribution Width 12.5 % (11.5-14.5); Red Blood Cell (RBC) Count 3.28 mill/uL (4.70-6.10)
[2021-08-10] MEDS ORDERED: Prevnar 13-Val Conj/PF 0.5 ML SYRINGE IM ONE (09:00)
[2021-08-10] MEDS ORDERED: FLU VACC QS2021-22(6MOS UP)/PF 60 MCG/0.5 ML SYRINGE IM ONE (09:00)
[2021-08-10] MEDS ORDERED: Polyethylene Glycol 3350 17 GM Packet PO SCH (09:15)
[2021-08-10] MEDS ORDERED: Senokot S 8.6-50 MG TAB PO SCH ×2 (09:30→21:00)
[2021-08-10] MEDS ORDERED: LOKELMA 10 GM PACKET PO SCH (09:30)
[2021-08-10] MEDS ORDERED: Polyethylene Glycol 3350 17 GM Packet PO PRN (09:34)
[2021-08-10] MEDS: Famotidine 20 MG TAB PO SCH (09:37)
[2021-08-10] MEDS: Aspirin Chewable 81 MG TAB PO SCH (09:38)
[2021-08-10] MEDS: Ezetimibe 10 MG TAB PO SCH (09:38)
[2021-08-10] MEDS: Enoxaparin Sodium 40 MG/0.4 ML SYRINGE SC SCH (09:45)
[2021-08-10] MEDS ORDERED: Morphine 4 MG/ML VIAL SLOW IVP PRN (11:03)
[2021-08-10 13:18] LABS: Bilirubin Negative (Negative); Blood, Urine 1+ (Negative); Clarity Clear (Clear); Glucose, Urine (Dipstick) Normal (Negative); Ketone, Urine Negative (Negative); Leukocyte Negative Leu/uL (Negative); Nitrite Negative (Negative); Protein, Urine (Dipstick) 50 mg/dL (Neg-Trace); RBC/HPF 0-3 HPF (0-3); Specific Gravity, Urine 1.025 (1.002-1.036); Squamous Epithelial 0-3 HPF (0-3); Urobilinogen Normal mg/dL (Less than 2); WBC/HPF 0-3 HPF (0-3); pH, Urine 5.5 (5.0-9.0)
[2021-08-10 13:19] LABS: Bacteria/HPF Rare-Few HPF (None Seen)
[2021-08-10] MEDS ORDERED: Meropenem 1 GM in Sodium Chloride 0.9% 100 ML IVPB SCH (14:00)
[2021-08-10 16:48] LABS: Potassium 4.4 mmol/L (3.5-5.1)
[2021-08-10] MEDS: Atorvastatin Calcium 20 MG TAB PO SCH (21:27)
[2021-08-10] MEDS: Meropenem 1 GM in Sodium Chloride 0.9% 100 ML IVPB SCH (21:28)
[2021-08-11] MEDS: Vancomycin 1.5 GRAM/300 ML BAG 1.5 GM in Premix Bag 1 BAG IVPB SCH (01:07)
[2021-08-11 04:57] LABS: #Eosinphils 0.1 thou/uL (0.0-0.7); #Lymphocytes 1.9 thou/uL (1.20-3.40); #Monocytes 0.4 thou/uL (0.11-0.59); #Neutrophils 3.5 thou/uL (1.40-6.50); %Basophils 0.4 % (0.0-1.0); %Eosinophils 2.4 % (0.0-10.0); %Lymphocytes 31.1 % (21.0-51.0); %Monocytes 7.2 % (0.0-10.0); Hemoglobin 7.8 g/dL (14.0-18.0); Mean Corpuscular HGB CONC 31.9 g/dL (32.0-36.0); Mean Corpuscular Hemoglobin 27.3 pg (27.0-31.0); Mean Corpuscular Volume 85.7 fL (78.0-98.0); Mean Platelet Volume 6.1 fL (7.4-10.4); Platelet Count 328 thou/uL (130-400); RBC Distribution Width 12.4 % (11.5-14.5); Red Blood Cell (RBC) Count 2.85 mill/uL (4.70-6.10)
[2021-08-11 05:19] LABS: Anion Gap 9 mmol/L (10-20); BUN (Urea Nitrogen) 13 mg/dL (8.4-25.7); Calc. Creatinine Clearance 113 mL/min (70-130); Calcium 8.7 mg/dL (7.8-10.44); Carbon Dioxide 25 mmol/L (22-29); Chloride 107 mmol/L (98-107); Glucose 102 mg/dL (70-105); Potassium 4.4 mmol/L (3.5-5.1); Sodium 137 mmol/L (136-145)
[2021-08-11] MEDS: Meropenem 1 GM in Sodium Chloride 0.9% 100 ML IVPB SCH ×3 (05:48→22:01)
[2021-08-11] MEDS: Sodium Chloride 0.9% 1,000 ML IV SCH ×2 (06:06→12:21)
[2021-08-11] MEDS: Aspirin Chewable 81 MG TAB PO SCH (10:07)
[2021-08-11] MEDS: Enoxaparin Sodium 40 MG/0.4 ML SYRINGE SC SCH (10:07)
[2021-08-11] MEDS: Ezetimibe 10 MG TAB PO SCH (10:08)
[2021-08-11] MEDS: hydrALAZINE 25 MG TAB PO SCH ×2 (15:00→20:16)
[2021-08-11] MEDS: Atorvastatin Calcium 20 MG TAB PO SCH (20:16)
[2021-08-12 00:14] LABS: Vancomycin, Trough 8.4 ug/mL
[2021-08-12] MEDS: Vancomycin 1.5 GRAM/300 ML BAG 1.5 GM in Premix Bag 1 BAG IVPB SCH (01:43)
[2021-08-12] MEDS: Meropenem 1 GM in Sodium Chloride 0.9% 100 ML IVPB SCH ×3 (05:25→21:34)
[2021-08-12 06:33] LABS: #Basophils 0.1 thou/uL (0.0-0.2); #Eosinphils 0.2 thou/uL (0.0-0.7); #Lymphocytes 1.8 thou/uL (1.20-3.40); #Monocytes 0.5 thou/uL (0.11-0.59); #Neutrophils 4.1 thou/uL (1.40-6.50); %Basophils 1.1 % (0.0-1.0); %Eosinophils 2.8 % (0.0-10.0); %Lymphocytes 27.2 % (21.0-51.0); %Monocytes 7.4 % (0.0-10.0); %Neutrophils 61.6 % (42.0-75.0); Hemoglobin 7.6 g/dL (14.0-18.0); Mean Corpuscular HGB CONC 32.5 g/dL (32.0-36.0); Mean Corpuscular Hemoglobin 27.8 pg (27.0-31.0); Mean Corpuscular Volume 85.5 fL (78.0-98.0); Mean Platelet Volume 5.9 fL (7.4-10.4); Platelet Count 311 thou/uL (130-400); RBC Distribution Width 12.3 % (11.5-14.5); Red Blood Cell (RBC) Count 2.74 mill/uL (4.70-6.10); White Blood Cell (WBC) Count 6.7 thou/uL (4.8-10.8)
[2021-08-12 06:50] LABS: Anion Gap 12 mmol/L (10-20); BUN (Urea Nitrogen) 11 mg/dL (8.4-25.7); Calc. Creatinine Clearance 129 mL/min (70-130); Calcium 8.9 mg/dL (7.8-10.44); Carbon Dioxide 23 mmol/L (22-29); Chloride 105 mmol/L (98-107); Glucose 105 mg/dL (70-105); Potassium 4.3 mmol/L (3.5-5.1); Sodium 136 mmol/L (136-145)
[2021-08-12] MEDS: Ezetimibe 10 MG TAB PO SCH (08:35)
[2021-08-12] MEDS: hydrALAZINE 25 MG TAB PO SCH ×3 (08:35→21:34)
[2021-08-12] MEDS: Aspirin Chewable 81 MG TAB PO SCH (08:35)
[2021-08-12] MEDS: Sodium Chloride 0.9% 1,000 ML IV SCH (10:42)
[2021-08-12] MEDS ORDERED: Ketorolac Tromethamine 30 MG/ML VIAL ONE (14:03)
[2021-08-12] MEDS ORDERED: Acetaminophen 500 MG TAB ONE (14:03)
[2021-08-12] MEDS ORDERED: Dexmedetomidine 200 MCG/2 ML VIAL ONE (14:34)
[2021-08-12] MEDS ORDERED: Fentanyl 250 MCG/5 ML VIAL ONE (14:34)
[2021-08-12] MEDS ORDERED: Bupivacaine 0.25% HCL 30 ML VIAL ONE (14:36)
[2021-08-12] MEDS ORDERED: Xylocaine 1% w/ Epi 1:100K 10 ML VIAL ONE (14:36)
[2021-08-12] MEDS ORDERED: Lidocaine 1% PF 5 ML VIAL ONE (15:01)
[2021-08-12] MEDS ORDERED: Metoclopramide HCl 10 MG/2 ML VIAL ONE (15:01)
[2021-08-12] MEDS ORDERED: Ondansetron PF 4 MG/2 ML Vial ONE (15:01)
[2021-08-12] MEDS ORDERED: ePHEDrine 50 MG/ML VIAL ONE (15:01)
[2021-08-12] MEDS ORDERED: PROPOFOL 200 MG/20 ML VIAL ONE (15:01)
[2021-08-12] MEDS ORDERED: Promethazine HCl 25 MG/ML VIAL IVPB PRN (15:55)
[2021-08-12] MEDS ORDERED: Ondansetron HCl/PF 4 MG/2 ML Vial IVP PRN (15:55)
[2021-08-12] MEDS ORDERED: Promethazine HCl 25 MG/ML VIAL IM PRN (15:55)
[2021-08-12] MEDS: Vancomycin HCl 1.5 GM in Sodium Chloride 0.9% 250 ML 300 ML IVPB SCH (16:05)
[2021-08-12] MEDS ORDERED: HYDROcodone/Acetaminophen 7.5/325 mg Tablet PO PRN (16:06)
[2021-08-12] MEDS: Atorvastatin Calcium 20 MG TAB PO SCH (21:34)
[2021-08-13] MEDS: Vancomycin HCl 1.5 GM in Sodium Chloride 0.9% 250 ML 300 ML IVPB SCH (01:07)
[2021-08-13] MEDS: Meropenem 1 GM in Sodium Chloride 0.9% 100 ML IVPB SCH ×3 (05:27→20:36)
[2021-08-13] MEDS: HYDROcodone/Acetaminophen 7.5/325 mg Tablet PO PRN ×2 (05:31→10:26)
[2021-08-13 06:39] LABS: #Eosinphils 0.2 thou/uL (0.0-0.7); #Lymphocytes 1.5 thou/uL (1.20-3.40); #Monocytes 0.3 thou/uL (0.11-0.59); #Neutrophils 3.9 thou/uL (1.40-6.50); %Basophils 0.5 % (0.0-1.0); %Eosinophils 2.7 % (0.0-10.0); %Lymphocytes 25.6 % (21.0-51.0); %Monocytes 5.4 % (0.0-10.0); %Neutrophils 65.8 % (42.0-75.0); Hemoglobin 7.8 g/dL (14.0-18.0); Mean Corpuscular Hemoglobin 27.1 pg (27.0-31.0); Mean Corpuscular Volume 84.8 fL (78.0-98.0); Mean Platelet Volume 6.1 fL (7.4-10.4); Platelet Count 362 thou/uL (130-400); RBC Distribution Width 12.3 % (11.5-14.5); Red Blood Cell (RBC) Count 2.86 mill/uL (4.70-6.10); White Blood Cell (WBC) Count 5.9 thou/uL (4.8-10.8)
[2021-08-13 06:44] LABS: Anion Gap 8 mmol/L (10-20); BUN (Urea Nitrogen) 11 mg/dL (8.4-25.7); Calc. Creatinine Clearance 111 mL/min (70-130); Calcium 8.7 mg/dL (7.8-10.44); Carbon Dioxide 28 mmol/L (22-29); Chloride 105 mmol/L (98-107); Glucose 160 mg/dL (70-105); Potassium 4.2 mmol/L (3.5-5.1); Sodium 137 mmol/L (136-145)
[2021-08-13] MEDS: Aspirin Chewable 81 MG TAB PO SCH (08:09)
[2021-08-13] MEDS: Ezetimibe 10 MG TAB PO SCH (08:09)
[2021-08-13] MEDS: hydrALAZINE 25 MG TAB PO SCH ×3 (08:09→20:16)
[2021-08-13 12:25] LABS: Vancomycin, Trough 21.4 ug/mL
[2021-08-13] MEDS: VANCOMYCIN 1.25 GM/250 ML BAG 1.25 GM in Premix Bag 1 BAG IVPB SCH (13:00)
[2021-08-13] MEDS ORDERED: Vancomycin 1.5 GRAM/300 ML BAG 1.5 GM in Premix Bag 1 BAG IVPB SCH (13:00)
[2021-08-13] MEDS: Sodium Chloride 0.9% 1,000 ML IV SCH (13:01)
[2021-08-13] MEDS: Atorvastatin Calcium 20 MG TAB PO SCH (20:16)
[2021-08-13] MEDS: Heparin 5,000 UNITS/ML VIAL SC SCH (20:17)
[2021-08-14] MEDS: VANCOMYCIN 1.25 GM/250 ML BAG 1.25 GM in Premix Bag 1 BAG IVPB SCH ×2 (01:41→12:15)
[2021-08-14] MEDS: Meropenem 1 GM in Sodium Chloride 0.9% 100 ML IVPB SCH ×3 (06:34→21:34)
[2021-08-14] MEDS: Ezetimibe 10 MG TAB PO SCH (08:11)
[2021-08-14] MEDS: hydrALAZINE 25 MG TAB PO SCH ×3 (08:11→20:16)
[2021-08-14] MEDS: Aspirin Chewable 81 MG TAB PO SCH (08:11)
[2021-08-14] MEDS: Heparin 5,000 UNITS/ML VIAL SC SCH (08:12)
[2021-08-14] MEDS: Sodium Chloride 0.9% 1,000 ML IV SCH (11:43)
[2021-08-14] MEDS: Atorvastatin Calcium 20 MG TAB PO SCH (20:17)
[2021-08-14] MEDS: Enoxaparin Sodium 40 MG/0.4 ML SYRINGE SC SCH (20:17)
[2021-08-15] MEDS: VANCOMYCIN 1.25 GM/250 ML BAG 1.25 GM in Premix Bag 1 BAG IVPB SCH ×2 (01:10→12:00)
[2021-08-15] MEDS: Meropenem 1 GM in Sodium Chloride 0.9% 100 ML IVPB SCH ×3 (05:55→21:33)
[2021-08-15] MEDS: Ezetimibe 10 MG TAB PO SCH (08:13)
[2021-08-15] MEDS: Aspirin Chewable 81 MG TAB PO SCH (08:13)
[2021-08-15] MEDS: hydrALAZINE 25 MG TAB PO SCH ×3 (08:13→21:32)
[2021-08-15 10:27] VITALS: BMI 36.1
[2021-08-15] MEDS: Enoxaparin Sodium 40 MG/0.4 ML SYRINGE SC SCH (21:32)
[2021-08-15] MEDS: Losartan 25 MG TAB PO SCH (21:32)
[2021-08-15] MEDS: metFORMIN 500 MG TAB PO SCH (21:32)
[2021-08-15] MEDS: Atorvastatin Calcium 20 MG TAB PO SCH (21:32)
[2021-08-16] MEDS: VANCOMYCIN 1.25 GM/250 ML BAG 1.25 GM in Premix Bag 1 BAG IVPB SCH (01:00)
[2021-08-16] MEDS: Meropenem 1 GM in Sodium Chloride 0.9% 100 ML IVPB SCH (06:30)
[2021-08-16 06:44] LABS: Iron 27 ug/dL (65-175); Iron Binding Capacity, Total 184 mcg/dL (261-462)
[2021-08-16] MEDS ORDERED: Ciprofloxacin 500 MG TAB PO SCH ×2 (08:15→20:00)
[2021-08-16] MEDS: metroNIDAZOLE 500 MG TAB PO SCH ×2 (08:38→14:50)
[2021-08-16] MEDS: hydrALAZINE 25 MG TAB PO SCH ×2 (08:38→14:50)
[2021-08-16] MEDS: metFORMIN 500 MG TAB PO SCH (08:38)
[2021-08-16] MEDS: Aspirin Chewable 81 MG TAB PO SCH (08:38)
[2021-08-16] MEDS: Ezetimibe 10 MG TAB PO SCH (08:38)
[2021-08-16] MEDS: Losartan 25 MG TAB PO SCH (08:38)
[2021-08-16 08:39] VITALS: BP 172/97; TEMP 98.3
[2021-08-16] MEDS ORDERED: Folic Acid 1 MG TAB PO SCH (09:00)
[2021-08-16] MEDS ORDERED: Hydrochlorothiazide 25 MG TAB PO SCH (09:00)
[2021-08-16] MEDS ORDERED: Ferrous Sulfate 325 MG TAB PO SCH (17:00)
== END 2021-08-16 16:11 | disposition home health service (06) | DRG 240 ==
LOC: SUATTDRO 11:47 → SDC 11:47 → 2NO 15:18 → T4-B 08-11 12:11
PROVIDERS: ADMIT Internal Medicine; ATTEND Internal Medicine
PROC: 0Y6N0ZB Detachment at Left Foot, Partial 2nd Ray, Open Approach (ICD-10-PCS; principal; 2021-08-12)
PROC: 0Y6N0ZC Detachment at Left Foot, Partial 3rd Ray, Open Approach (ICD-10-PCS; 2021-08-12)
PROC: 0JBR0ZZ Excision of Left Foot Subcutaneous Tissue and Fascia, Open Approach (ICD-10-PCS; 2021-08-12)
DX: E11.52 Type 2 diabetes mellitus with diabetic peripheral angiopathy with gangrene (principal); I96 Gangrene, not elsewhere classified; N17.9 Acute kidney failure, unspecified; M86.8X7 Other osteomyelitis, ankle and foot; E11.22 Type 2 diabetes mellitus with diabetic chronic kidney disease; N18.2 Chronic kidney disease, stage 2 (mild); E87.5 Hyperkalemia; I12.9 Hypertensive chronic kidney disease with stage 1 through stage 4 chronic kidney disease, or unspecified chronic kidney disease; E78.5 Hyperlipidemia, unspecified; K21.9 Gastro-esophageal reflux disease without esophagitis; E11.628 Type 2 diabetes mellitus with other skin complications; L08.9 Local infection of the skin and subcutaneous tissue, unspecified; E11.69 Type 2 diabetes mellitus with other specified complication; D50.9 Iron deficiency anemia, unspecified; E66.9 Obesity, unspecified; D53.9 Nutritional anemia, unspecified; Z91.14 Patient's other noncompliance with medication regimen; Z79.82 Long term (current) use of aspirin; Z79.84 Long term (current) use of oral hypoglycemic drugs; Z79.899 Other long term (current) drug therapy; Z90.49 Acquired absence of other specified parts of digestive tract; Z89.419 Acquired absence of unspecified great toe; Z68.36 Body mass index [BMI] 36.0-36.9, adult
CPT/HCPCS: 36415; 36416; 80048; 80202; 81001; 82607; 82746; 83540; 83550; 83735; 85025; 85046; 86850; 86900; 86901; 88305; 88311; J1644; J1650; J1815; J1885; J2185; J2405; J2543; J2704; J2765; J3010; J3370; J3490; J7050; S0020

== ENCOUNTER 2021-12-07 14:27 | Emergency (ER) | payer MEDICARE ==
[2021-12-07] MEDS ORDERED: Lidocaine 1% w/Epinephrine 1:100K 20 ML VIAL ONE (14:55)
[2021-12-07] MEDS ORDERED: Fentanyl 100 MCG/2 ML VIAL ONE (15:47)
== END 2021-12-07 17:21 | disposition home or self-care (01) ==
LOC: ERS 14:27
DX: S81.012A Laceration without foreign body, left knee, initial encounter (principal); I13.0 Hypertensive heart and chronic kidney disease with heart failure and stage 1 through stage 4 chronic kidney disease, or unspecified chronic kidney disease; E11.22 Type 2 diabetes mellitus with diabetic chronic kidney disease; N18.9 Chronic kidney disease, unspecified; I50.9 Heart failure, unspecified; E78.5 Hyperlipidemia, unspecified; W18.30XA Fall on same level, unspecified, initial encounter; Y93.01 Activity, walking, marching and hiking; Z89.512 Acquired absence of left leg below knee
CPT/HCPCS: 12005; 96372; J3010

== ENCOUNTER 2022-07-16 15:44 | Emergency (ER) | payer MEDICARE ==
[2022-07-16] MEDS ORDERED: Ketorolac Tromethamine 30 MG/ML VIAL ONE ×2 (17:51)
[2022-07-16] MEDS ORDERED: HYDROcodone/Acetaminophen 10/325 mg Tablet ONE (17:51)
== END 2022-07-16 18:22 | disposition home or self-care (01) ==
LOC: ERS 15:44
DX: M62.838 Other muscle spasm (principal); I13.0 Hypertensive heart and chronic kidney disease with heart failure and stage 1 through stage 4 chronic kidney disease, or unspecified chronic kidney disease; I50.9 Heart failure, unspecified; N18.9 Chronic kidney disease, unspecified; E11.22 Type 2 diabetes mellitus with diabetic chronic kidney disease; E78.5 Hyperlipidemia, unspecified
CPT/HCPCS: 96372; 99283; J1885

== ENCOUNTER 2022-10-26 17:03 | Emergency (ER) | payer MEDICARE ==
[2022-10-26 18:03] LABS: #Eosinphils 0.1 thou/uL (0.0-0.7); #Lymphocytes 1.2 thou/uL (1.20-3.40); #Monocytes 0.5 thou/uL (0.11-0.59); #Neutrophils 7.9 thou/uL (1.40-6.50); %Basophils 0.1 % (0.0-1.0); %Eosinophils 0.8 % (0.0-10.0); %Lymphocytes 12.2 % (21.0-51.0); %Monocytes 4.7 % (0.0-10.0); %Neutrophils 82.2 % (42.0-75.0); Hemoglobin 11.7 g/dL (14.0-18.0); Mean Corpuscular HGB CONC 32.9 g/dL (32.0-36.0); Mean Corpuscular Hemoglobin 27.7 pg (27.0-31.0); Mean Corpuscular Volume 84.1 fl (78.0-98.0); Platelet Count 256 10x3/uL (130-400); RBC Distribution Width 12.6 % (11.5-14.5); Red Blood Cell (RBC) Count 4.22 mill/uL (4.70-6.10); White Blood Cell (WBC) Count 9.6 10x3/uL (4.8-10.8)
[2022-10-26 18:21] LABS: ALT (SGPT) 10 U/L (8-55); AST (SGOT) 20 U/L (5-34); Albumin 3.9 g/dL (3.5-5.0); Alkaline Phosphatase 77 U/L (40-110); Anion Gap 16 mmol/L (10-20); BUN (Urea Nitrogen) 15 mg/dL (8.4-25.7); Bilirubin, Total 0.8 mg/dL (0.2-1.2); Calc. Creatinine Clearance 0 mL/min (70-130); Calcium 9.2 mg/dL (7.8-10.44); Carbon Dioxide 23 mmol/L (22-29); Chloride 104 mmol/L (98-107); Estimated GFR 51; Globulin 4.1 g/dL (2.4-3.5); Glucose 103 mg/dL (70-105); Potassium 4.4 mmol/L (3.5-5.1); Sodium 139 mmol/L (136-145)
[2022-10-26] MEDS ORDERED: Ondansetron ODT 4 MG TAB ONE (19:08)
== END 2022-10-26 21:15 | disposition home or self-care (01) ==
LOC: ERS 17:03
DX: B34.9 Viral infection, unspecified (principal); E11.22 Type 2 diabetes mellitus with diabetic chronic kidney disease; N18.9 Chronic kidney disease, unspecified; I13.0 Hypertensive heart and chronic kidney disease with heart failure and stage 1 through stage 4 chronic kidney disease, or unspecified chronic kidney disease; I50.9 Heart failure, unspecified; E78.5 Hyperlipidemia, unspecified
CPT/HCPCS: 36415; 71045; 80053; 83690; 85025; Q0162

== ENCOUNTER 2025-01-21 11:51 | Inpatient (IN) | payer MEDICARE ==
[2025-01-21 13:14] LABS: #Basophils 0.06 10x3/uL (0.0-0.2); #Eosinophils 0.05 10x3/uL (0.0-0.7); #Monocytes 1.07 10x3/uL (0.11-0.59); #Neutrophils 16.35 10x3/uL (1.40-6.50); %Basophils 0.3 % (0.0-1.0); %Eosinophils 0.3 % (0.0-10.0); %Lymphocytes 3.7 % (21.0-51.0); %Monocytes 5.8 % (0.0-10.0); %Neutrophils 89.2 % (42.0-75.0); Hematocrit 41.4 % (42.0-52.0); Hemoglobin 13.1 g/dL (14.0-18.0); Mean Corpuscular Hemoglobin 26.8 pg (27.0-31.0); Mean Corpuscular Volume 84.7 fL (78.0-98.0); Platelet Count 295 10x3/uL (130-400); Red Blood Cell (RBC) Count 4.89 mill/uL (4.70-6.10); White Blood Cell (WBC) Count 18.34 10x3/uL (4.8-10.8)
[2025-01-21] MEDS ORDERED: Cefepime 2 GM VIAL ONE (13:16)
[2025-01-21 13:53] LABS: ALT (SGPT) 9 U/L (Less than 45); AST (SGOT) 21 U/L (11-34); Albumin 2.8 g/dL (3.1-4.5); Alkaline Phosphatase 148 U/L (40-110); Anion Gap 17 mmol/L (10-20); BUN (Urea Nitrogen) 17 mg/dL (8.4-25.7); Bilirubin, Total 2.2 mg/dL (0.3-1.2); Calc. Creatinine Clearance 0 mL/min (70-130); Calcium 8.6 mg/dL (7.8-10.44); Carbon Dioxide 23 mmol/L (22-29); Chloride 99 mmol/L (98-107); Globulin 4.6 g/dL (2.4-3.5); Glucose 138 mg/dL (70-105); Lipase 21 U/L (8-78); Potassium 5.1 mmol/L (3.5-5.1); Sodium 134 mmol/L (136-145)
[2025-01-21] MEDS ORDERED: VANCOMYCIN 2 GRAM/400 ML BAG ONE (14:31)
[2025-01-21] MEDS ORDERED: Pharmacy to Dose: VANC IVPB PRN (14:39)
[2025-01-21] MEDS ORDERED: Glucagon 1 MG/ML KIT IM PRN (14:40)
[2025-01-21] MEDS ORDERED: Dextrose 50% Abboject 50 ML SYRINGE SLOW IVP PRN (14:40)
[2025-01-21] MEDS ORDERED: Calcium Carbonate 500 MG ChewTAB PO PRN (14:48)
[2025-01-21] MEDS ORDERED: Senokot S 8.6-50 MG TAB PO PRN (14:48)
[2025-01-21] MEDS ORDERED: Iopamidol 370 76% 100 ML VIAL ONE (14:53)
[2025-01-21] MEDS: Furosemide 40 MG (4 mL) VIAL SLOW IVP SCH (16:34)
[2025-01-21 16:35] LABS: Troponin I 0.020 ng/mL (< 0.028)
[2025-01-21 18:42] LABS: Troponin I Less than 0.010 ng/mL (< 0.028)
[2025-01-21] MEDS: Heparin 5,000 UNITS/ML VIAL SC SCH (20:35)
[2025-01-21] MEDS ORDERED: Vancomycin 1 GM in Premix 1 BAG IVPB SCH (21:00)
[2025-01-22 04:22] LABS: #Basophils 0.07 10x3/uL (0.0-0.2); #Eosinophils 0.18 10x3/uL (0.0-0.7); #Monocytes 1.08 10x3/uL (0.11-0.59); #Neutrophils 16.56 10x3/uL (1.40-6.50); %Basophils 0.4 % (0.0-1.0); %Eosinophils 1.0 % (0.0-10.0); %Lymphocytes 3.9 % (21.0-51.0); %Monocytes 5.8 % (0.0-10.0); %Neutrophils 88.1 % (42.0-75.0); Hematocrit 33.3 % (42.0-52.0); Hemoglobin 10.7 g/dL (14.0-18.0); Mean Corpuscular Hemoglobin 27.0 pg (27.0-31.0); Mean Corpuscular Volume 84.1 fL (78.0-98.0); Platelet Count 360 10x3/uL (130-400); Red Blood Cell (RBC) Count 3.96 mill/uL (4.70-6.10); White Blood Cell (WBC) Count 18.77 10x3/uL (4.8-10.8)
[2025-01-22 04:37] LABS: Anion Gap 14 mmol/L (10-20); BUN (Urea Nitrogen) 18 mg/dL (8.4-25.7); Calc. Creatinine Clearance 75 mL/min (70-130); Calcium 8.1 mg/dL (7.8-10.44); Carbon Dioxide 22 mmol/L (22-29); Chloride 104 mmol/L (98-107); Glucose 79 mg/dL (70-105); Potassium 4.4 mmol/L (3.5-5.1); Sodium 136 mmol/L (136-145)
[2025-01-22] MEDS: Vancomycin 1.5 GM / NS 500 ML VIAL-2-BAG IVPB SCH (10:02)
[2025-01-23] MEDS: Acetaminophen 325 MG TAB PO PRN (04:26)
[2025-01-23 05:11] LABS: #Basophils 0.05 10x3/uL (0.0-0.2); #Eosinophils 0.12 10x3/uL (0.0-0.7); #Monocytes 1.08 10x3/uL (0.11-0.59); #Neutrophils 18.25 10x3/uL (1.40-6.50); %Basophils 0.2 % (0.0-1.0); %Eosinophils 0.6 % (0.0-10.0); %Lymphocytes 3.3 % (21.0-51.0); %Monocytes 5.3 % (0.0-10.0); %Neutrophils 89.6 % (42.0-75.0); Hematocrit 33.8 % (42.0-52.0); Hemoglobin 11.3 g/dL (14.0-18.0); Mean Corpuscular Hemoglobin 27.4 pg (27.0-31.0); Mean Corpuscular Volume 82.0 fL (78.0-98.0); Platelet Count 400 10x3/uL (130-400); Red Blood Cell (RBC) Count 4.12 mill/uL (4.70-6.10); White Blood Cell (WBC) Count 20.37 10x3/uL (4.8-10.8)
[2025-01-23 05:31] LABS: Anion Gap 13 mmol/L (10-20); BUN (Urea Nitrogen) 21 mg/dL (8.4-25.7); Calc. Creatinine Clearance 78 mL/min (70-130); Calcium 8.0 mg/dL (7.8-10.44); Carbon Dioxide 21 mmol/L (22-29); Chloride 103 mmol/L (98-107); Glucose 160 mg/dL (70-105); Potassium 4.4 mmol/L (3.5-5.1); Sodium 133 mmol/L (136-145)
[2025-01-23 05:41] LABS: Vancomycin, Random 21.8 ug/mL (See Comment)
[2025-01-23] MEDS: Aspirin 81 mg Enteric Coated Tablet PO SCH (09:05)
[2025-01-23] MEDS: Carvedilol 6.25 MG TAB PO SCH (09:05)
[2025-01-23] MEDS: Sacubitril 24MG/Valsartan 26 MG TAB PO SCH (09:05)
[2025-01-24 04:26] LABS: Cocaine Metabolite Screen Negative (Negative); THC/Cannabinoid Screen Negative (Negative); Tricyclic Screen Negative (Negative)
[2025-01-24 04:44] LABS: #Basophils 0.05 10x3/uL (0.0-0.2); #Eosinophils 0.19 10x3/uL (0.0-0.7); #Monocytes 1.11 10x3/uL (0.11-0.59); #Neutrophils 15.99 10x3/uL (1.40-6.50); %Basophils 0.3 % (0.0-1.0); %Eosinophils 1.0 % (0.0-10.0); %Lymphocytes 4.5 % (21.0-51.0); %Monocytes 6.0 % (0.0-10.0); %Neutrophils 87.1 % (42.0-75.0); Hematocrit 32.1 % (42.0-52.0); Hemoglobin 10.4 g/dL (14.0-18.0); Mean Corpuscular Hemoglobin 27.1 pg (27.0-31.0); Mean Corpuscular Volume 83.6 fL (78.0-98.0); Platelet Count 383 10x3/uL (130-400); Red Blood Cell (RBC) Count 3.84 mill/uL (4.70-6.10); White Blood Cell (WBC) Count 18.37 10x3/uL (4.8-10.8)
[2025-01-24 05:17] LABS: CRP,High Sensitivity (Inhouse) 14.34 mg/dL (< or = 0.5)
[2025-01-24 05:18] LABS: Anion Gap 14 mmol/L (10-20); BUN (Urea Nitrogen) 21 mg/dL (8.4-25.7); Calc. Creatinine Clearance 81 mL/min (70-130); Calcium 7.9 mg/dL (7.8-10.44); Carbon Dioxide 19 mmol/L (22-29); Cardiac Risk 5.2 (Less than 4.5); Chloride 103 mmol/L (98-107); Cholesterol 62 mg/dl (< 200 Desired); Glucose 92 mg/dL (70-105); HDL Cholesterol 12 mg/dL (>60 Neg Risk); LDL Cholesterol, Calculated 40 mg/dL; Magnesium 1.7 mg/dL (1.6-2.6); Potassium 3.9 mmol/L (3.5-5.1); Sodium 132 mmol/L (136-145); Triglycerides 48 mg/dL (Less than 150)
[2025-01-24] MEDS: Dapagliflozin Propanediol 10 MG TAB PO SCH (09:34)
[2025-01-24] MEDS: Vancomycin 1 GM in Premix 1 BAG IVPB SCH (09:34)
[2025-01-25 07:08] LABS: #Basophils 0.06 10x3/uL (0.0-0.2); #Eosinophils 0.22 10x3/uL (0.0-0.7); #Monocytes 1.12 10x3/uL (0.11-0.59); #Neutrophils 16.45 10x3/uL (1.40-6.50); %Basophils 0.3 % (0.0-1.0); %Eosinophils 1.2 % (0.0-10.0); %Lymphocytes 4.7 % (21.0-51.0); %Monocytes 5.9 % (0.0-10.0); %Neutrophils 86.7 % (42.0-75.0); Hematocrit 33.6 % (42.0-52.0); Hemoglobin 10.9 g/dL (14.0-18.0); Mean Corpuscular Hemoglobin 27.3 pg (27.0-31.0); Mean Corpuscular Volume 84.0 fL (78.0-98.0); Platelet Count 402 10x3/uL (130-400); Red Blood Cell (RBC) Count 4.00 mill/uL (4.70-6.10); White Blood Cell (WBC) Count 18.96 10x3/uL (4.8-10.8)
[2025-01-25 08:03] LABS: Anion Gap 13 mmol/L (10-20); BUN (Urea Nitrogen) 20 mg/dL (8.4-25.7); Calc. Creatinine Clearance 77 mL/min (70-130); Calcium 7.6 mg/dL (7.8-10.44); Carbon Dioxide 21 mmol/L (22-29); Glucose 104 mg/dL (70-105); Vancomycin, Random 22.8 ug/mL (See Comment)
[2025-01-25 08:05] LABS: Chloride 102 mmol/L (98-107); Potassium 4.2 mmol/L (3.5-5.1); Sodium 132 mmol/L (136-145)
[2025-01-26 04:53] LABS: #Basophils 0.05 10x3/uL (0.0-0.2); #Eosinophils 0.18 10x3/uL (0.0-0.7); #Monocytes 1.15 10x3/uL (0.11-0.59); #Neutrophils 13.77 10x3/uL (1.40-6.50); %Basophils 0.3 % (0.0-1.0); %Eosinophils 1.1 % (0.0-10.0); %Lymphocytes 5.9 % (21.0-51.0); %Monocytes 7.1 % (0.0-10.0); %Neutrophils 84.9 % (42.0-75.0); Hematocrit 30.6 % (42.0-52.0); Hemoglobin 10.1 g/dL (14.0-18.0); Mean Corpuscular Hemoglobin 27.2 pg (27.0-31.0); Mean Corpuscular Volume 82.3 fL (78.0-98.0); Platelet Count 388 10x3/uL (130-400); Red Blood Cell (RBC) Count 3.72 mill/uL (4.70-6.10); White Blood Cell (WBC) Count 16.22 10x3/uL (4.8-10.8)
[2025-01-26 05:10] LABS: Anion Gap 15 mmol/L (10-20); BUN (Urea Nitrogen) 18 mg/dL (8.4-25.7); Calc. Creatinine Clearance 79 mL/min (70-130); Calcium 7.8 mg/dL (7.8-10.44); Carbon Dioxide 19 mmol/L (22-29); Chloride 100 mmol/L (98-107); Glucose 73 mg/dL (70-105); Potassium 4.0 mmol/L (3.5-5.1); Sodium 130 mmol/L (136-145)
[2025-01-26] MEDS ORDERED: Vancomycin 1 GM/200 ML (FROZEN) BAG ONE (08:40)
[2025-01-26] MEDS ORDERED: Dextrose 50% Abboject 50 ML SYRINGE ONE (08:40)
[2025-01-26] MEDS ORDERED: PROPOFOL 20 ML ONE (12:59)
[2025-01-26] MEDS ORDERED: Ondansetron PF 4 MG/2 ML Vial ONE (13:22)
[2025-01-27 04:52] LABS: #Basophils 0.04 10x3/uL (0.0-0.2); #Eosinophils 0.09 10x3/uL (0.0-0.7); #Monocytes 1.45 10x3/uL (0.11-0.59); #Neutrophils 16.06 10x3/uL (1.40-6.50); %Basophils 0.2 % (0.0-1.0); %Eosinophils 0.5 % (0.0-10.0); %Lymphocytes 3.9 % (21.0-51.0); %Monocytes 7.8 % (0.0-10.0); %Neutrophils 86.6 % (42.0-75.0); Hematocrit 32.5 % (42.0-52.0); Hemoglobin 10.3 g/dL (14.0-18.0); Mean Corpuscular Hemoglobin 26.5 pg (27.0-31.0); Mean Corpuscular Volume 83.5 fL (78.0-98.0); Platelet Count 368 10x3/uL (130-400); Red Blood Cell (RBC) Count 3.89 mill/uL (4.70-6.10); White Blood Cell (WBC) Count 18.56 10x3/uL (4.8-10.8)
[2025-01-27 05:14] LABS: Anion Gap 11 mmol/L (10-20); BUN (Urea Nitrogen) 18 mg/dL (8.4-25.7); Calc. Creatinine Clearance 75 mL/min (70-130); Calcium 7.7 mg/dL (7.8-10.44); Carbon Dioxide 22 mmol/L (22-29); Chloride 99 mmol/L (98-107); Glucose 123 mg/dL (70-105); Potassium 4.4 mmol/L (3.5-5.1); Sodium 128 mmol/L (136-145)
[2025-01-27 14:52] VITALS: BMI 35.6
[2025-01-28 04:57] LABS: #Basophils 0.05 10x3/uL (0.0-0.2); #Eosinophils 0.09 10x3/uL (0.0-0.7); #Monocytes 1.25 10x3/uL (0.11-0.59); #Neutrophils 14.42 10x3/uL (1.40-6.50); %Basophils 0.3 % (0.0-1.0); %Eosinophils 0.5 % (0.0-10.0); %Lymphocytes 6.0 % (21.0-51.0); %Monocytes 7.4 % (0.0-10.0); %Neutrophils 85.0 % (42.0-75.0); Hematocrit 32.2 % (42.0-52.0); Hemoglobin 10.2 g/dL (14.0-18.0); Mean Corpuscular Hemoglobin 26.8 pg (27.0-31.0); Mean Corpuscular Volume 84.7 fL (78.0-98.0); Platelet Count 354 10x3/uL (130-400); Red Blood Cell (RBC) Count 3.80 mill/uL (4.70-6.10); White Blood Cell (WBC) Count 16.96 10x3/uL (4.8-10.8)
[2025-01-28 05:09] LABS: Vancomycin, Random 26.2 ug/mL (See Comment)
[2025-01-28 05:14] LABS: Anion Gap 15 mmol/L (10-20); BUN (Urea Nitrogen) 21 mg/dL (8.4-25.7); Calc. Creatinine Clearance 62 mL/min (70-130); Calcium 8.0 mg/dL (7.8-10.44); Carbon Dioxide 21 mmol/L (22-29); Chloride 97 mmol/L (98-107); Glucose 103 mg/dL (70-105); Magnesium 1.9 mg/dL (1.6-2.6); Potassium 4.9 mmol/L (3.5-5.1); Sodium 128 mmol/L (136-145)
[2025-01-29 05:03] LABS: #Basophils 0.05 10x3/uL (0.0-0.2); #Eosinophils 0.13 10x3/uL (0.0-0.7); #Monocytes 0.84 10x3/uL (0.11-0.59); #Neutrophils 10.29 10x3/uL (1.40-6.50); %Basophils 0.4 % (0.0-1.0); %Eosinophils 1.1 % (0.0-10.0); %Lymphocytes 7.5 % (21.0-51.0); %Monocytes 6.8 % (0.0-10.0); %Neutrophils 83.1 % (42.0-75.0); Hematocrit 35.9 % (42.0-52.0); Hemoglobin 11.5 g/dL (14.0-18.0); Mean Corpuscular Hemoglobin 27.1 pg (27.0-31.0); Mean Corpuscular Volume 84.7 fL (78.0-98.0); Platelet Count 412 10x3/uL (130-400); Red Blood Cell (RBC) Count 4.24 mill/uL (4.70-6.10); White Blood Cell (WBC) Count 12.37 10x3/uL (4.8-10.8)
[2025-01-29 05:19] LABS: ALT (SGPT) Less than 7 U/L (Less than 45); AST (SGOT) 27 U/L (11-34); Albumin 2.4 g/dL (3.1-4.5); Alkaline Phosphatase 219 U/L (40-110); Anion Gap 17 mmol/L (10-20); BUN (Urea Nitrogen) 26 mg/dL (8.4-25.7); Bilirubin, Total 1.1 mg/dL (0.3-1.2); Calc. Creatinine Clearance 59 mL/min (70-130); Calcium 8.3 mg/dL (7.8-10.44); Carbon Dioxide 21 mmol/L (22-29); Chloride 97 mmol/L (98-107); Globulin 5.0 g/dL (2.4-3.5); Glucose 95 mg/dL (70-105); Magnesium 2.0 mg/dL (1.6-2.6); Potassium 4.9 mmol/L (3.5-5.1); Sodium 130 mmol/L (136-145)
[2025-01-29] MEDS: Vancomycin HCl 500 MG in NaCl 0.9% 100 ML IV SCH (20:57)
[2025-01-30 05:14] LABS: #Basophils 0.05 10x3/uL (0.0-0.2); #Eosinophils 0.16 10x3/uL (0.0-0.7); #Monocytes 1.18 10x3/uL (0.11-0.59); #Neutrophils 9.43 10x3/uL (1.40-6.50); %Basophils 0.4 % (0.0-1.0); %Eosinophils 1.3 % (0.0-10.0); %Lymphocytes 7.9 % (21.0-51.0); %Monocytes 9.9 % (0.0-10.0); %Neutrophils 79.7 % (42.0-75.0); Hematocrit 30.6 % (42.0-52.0); Hemoglobin 9.9 g/dL (14.0-18.0); Mean Corpuscular Hemoglobin 26.8 pg (27.0-31.0); Mean Corpuscular Volume 82.9 fL (78.0-98.0); Platelet Count 370 10x3/uL (130-400); Red Blood Cell (RBC) Count 3.69 mill/uL (4.70-6.10); White Blood Cell (WBC) Count 11.86 10x3/uL (4.8-10.8)
[2025-01-30 05:36] LABS: Vancomycin, Random 25.9 ug/mL (See Comment)
[2025-01-30 05:37] LABS: ALT (SGPT) 7 U/L (Less than 45); AST (SGOT) 23 U/L (11-34); Albumin 2.2 g/dL (3.1-4.5); Alkaline Phosphatase 204 U/L (40-110); Anion Gap 12 mmol/L (10-20); BUN (Urea Nitrogen) 27 mg/dL (8.4-25.7); Bilirubin, Total 0.9 mg/dL (0.3-1.2); Calc. Creatinine Clearance 69 mL/min (70-130); Calcium 8.1 mg/dL (7.8-10.44); Carbon Dioxide 24 mmol/L (22-29); Chloride 101 mmol/L (98-107); Globulin 4.5 g/dL (2.4-3.5); Glucose 96 mg/dL (70-105); Magnesium 2.0 mg/dL (1.6-2.6); Potassium 4.5 mmol/L (3.5-5.1); Sodium 132 mmol/L (136-145)
[2025-01-31 04:46] LABS: #Basophils 0.06 10x3/uL (0.0-0.2); #Eosinophils 0.16 10x3/uL (0.0-0.7); #Monocytes 0.72 10x3/uL (0.11-0.59); #Neutrophils 6.50 10x3/uL (1.40-6.50); %Basophils 0.7 % (0.0-1.0); %Eosinophils 1.9 % (0.0-10.0); %Lymphocytes 9.6 % (21.0-51.0); %Monocytes 8.7 % (0.0-10.0); %Neutrophils 78.4 % (42.0-75.0); Hematocrit 32.3 % (42.0-52.0); Hemoglobin 10.4 g/dL (14.0-18.0); Mean Corpuscular Hemoglobin 26.9 pg (27.0-31.0); Mean Corpuscular Volume 83.5 fL (78.0-98.0); Platelet Count 372 10x3/uL (130-400); Red Blood Cell (RBC) Count 3.87 mill/uL (4.70-6.10); White Blood Cell (WBC) Count 8.30 10x3/uL (4.8-10.8)
[2025-01-31 05:07] LABS: Anion Gap 12 mmol/L (10-20); BUN (Urea Nitrogen) 25 mg/dL (8.4-25.7); Calc. Creatinine Clearance 76 mL/min (70-130); Calcium 8.0 mg/dL (7.8-10.44); Carbon Dioxide 21 mmol/L (22-29); Chloride 104 mmol/L (98-107); Glucose 102 mg/dL (70-105); Potassium 4.7 mmol/L (3.5-5.1); Sodium 132 mmol/L (136-145)
[2025-01-31 18:19] VITALS: BMI 36.8
[2025-01-31] MEDS: Melatonin 3 MG TAB PO PRN (21:23)
[2025-02-01 04:48] LABS: Hematocrit 31.7 % (42.0-52.0); Hemoglobin 10.3 g/dL (14.0-18.0); Mean Corpuscular Hemoglobin 26.9 pg (27.0-31.0); Mean Corpuscular Volume 82.8 fL (78.0-98.0); Platelet Count 352 10x3/uL (130-400); Red Blood Cell (RBC) Count 3.83 mill/uL (4.70-6.10); White Blood Cell (WBC) Count 7.58 10x3/uL (4.8-10.8)
[2025-02-01 04:51] LABS: Vancomycin, Random 22.9 ug/mL (See Comment)
[2025-02-01 05:01] LABS: Anion Gap 13 mmol/L (10-20); BUN (Urea Nitrogen) 26 mg/dL (8.4-25.7); Calc. Creatinine Clearance 76 mL/min (70-130); Calcium 7.8 mg/dL (7.8-10.44); Carbon Dioxide 21 mmol/L (22-29); Chloride 105 mmol/L (98-107); Glucose 80 mg/dL (70-105); Potassium 4.9 mmol/L (3.5-5.1); Sodium 134 mmol/L (136-145)
[2025-02-02 12:47] VITALS: BP 138/81; TEMP 98.1
== END 2025-02-02 16:44 | disposition home or self-care (01) | DRG 871 ==
LOC: ERS 11:51 → 2NO 14:34
PROVIDERS: ADMIT Hospitalist; ATTEND Internal Medicine
PROC: 3E03329 Introduction of Other Anti-infective into Peripheral Vein, Percutaneous Approach (ICD-10-PCS; 2025-01-21)
PROC: 0J9Q0ZZ Drainage of Right Foot Subcutaneous Tissue and Fascia, Open Approach (ICD-10-PCS; principal; 2025-01-26)
DX: A41.9 Sepsis, unspecified organism (principal); I50.23 Acute on chronic systolic (congestive) heart failure; L03.115 Cellulitis of right lower limb; I13.0 Hypertensive heart and chronic kidney disease with heart failure and stage 1 through stage 4 chronic kidney disease, or unspecified chronic kidney disease; N17.9 Acute kidney failure, unspecified; I42.9 Cardiomyopathy, unspecified; E87.1 Hypo-osmolality and hyponatremia; E78.5 Hyperlipidemia, unspecified; E11.22 Type 2 diabetes mellitus with diabetic chronic kidney disease; Z90.49 Acquired absence of other specified parts of digestive tract; Z98.890 Other specified postprocedural states; E11.40 Type 2 diabetes mellitus with diabetic neuropathy, unspecified; Z79.82 Long term (current) use of aspirin; Z79.899 Other long term (current) drug therapy; E11.51 Type 2 diabetes mellitus with diabetic peripheral angiopathy without gangrene; N18.30 Chronic kidney disease, stage 3 unspecified; I73.9 Peripheral vascular disease, unspecified
CPT/HCPCS: 36415; 36416; 80048; 80053; 80061; 80202; 80306; 83036; 83605; 83690; 83735; 84484; 85025; 85027; 86141; 87040; 87070; 87076; 87077; 87081; 87149; 87186; 87205; 93306; 96365; 96366; 96368; 97139; J0665; J0692; J1644; J1940; J2405; J2704; J3373; J3375; J7030; J7050; J7999; Q9967